=== PATIENT | female | born 1960 | race Caucasian/White ===

== ENCOUNTER 2021-09-25 15:37 | Emergency (ER) | payer MEDICAID, SELFPAY ==
--- NOTE | 2021-09-25 15:40 | ECG_ITS ---
Test Reason : CHEST PAIN Blood Pressure : / mmHG Vent. Rate : 081 BPM Atrial Rate : 081 BPM P-R Int : 170 ms QRS Dur : 072 ms QT Int : 372 ms P-R-T Axes : 070 034 059 degrees QTc Int : 432 ms Normal sinus rhythm Normal ECG No previous ECGs available Referred By: Generic ED Physician Electronically Signed By:DEEPA COLVIN MD
== END 2021-09-25 20:05 | disposition left against medical advice (07) ==
PROVIDERS: Emergency Provider Emergency Medicine; PCP Family Medicine
DX: R07.9 Chest pain, unspecified (principal)
CPT/HCPCS: 93005; 99281; 99283

== ENCOUNTER 2024-08-04 11:29 | Outpatient (AMB) | payer OTHER, SELFPAY ==
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
== END 2024-08-04 12:29 | disposition home or self-care (01) ==
LOC: HO.HUSH 11:29
PROVIDERS: PCP Family Medicine; Visit Provider Nurse Practitioner Family
DX: R39.9 Unspecified symptoms and signs involving the genitourinary system (principal); R35.0 Frequency of micturition; R35.1 Nocturia; N30.10 Interstitial cystitis (chronic) without hematuria; Z13.9 Encounter for screening, unspecified
CPT/HCPCS: 99203

== ENCOUNTER → 2024-08-04 11:29 | Outpatient (BNVA) | payer OTHER, SELFPAY | PROVIDERS: PCP Family Medicine; Visit Provider Nurse Practitioner Family | DX: N30.10 Interstitial cystitis (chronic) without hematuria (principal); R35.1 Nocturia; R35.0 Frequency of micturition; R39.9 Unspecified symptoms and signs involving the genitourinary system | CPT/HCPCS: 51798; 81003; 99202 ==

== ENCOUNTER 2024-09-16 10:00 | Outpatient (REF) | payer OTHER, SELFPAY | END 2024-09-16 10:01 | disposition home or self-care (01) | LOC: HO.US 10:00 | PROVIDERS: PCP Family Medicine; Visit Provider Nurse Practitioner Family | DX: R35.1 Nocturia (principal); R35.0 Frequency of micturition; R39.9 Unspecified symptoms and signs involving the genitourinary system; N30.10 Interstitial cystitis (chronic) without hematuria | CPT/HCPCS: 76770 ==

== ENCOUNTER → 2024-09-16 10:02 | Outpatient (BNV) | payer OTHER, SELFPAY | PROVIDERS: PCP Family Medicine; Visit Provider Radiology Diagnostic Radiology | DX: N28.1 Cyst of kidney, acquired (principal) | CPT/HCPCS: 76770 ==

== ENCOUNTER 2024-09-23 09:59 | Outpatient (AMB) | payer OTHER, SELFPAY ==
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
== END 2024-09-23 10:55 | disposition home or self-care (01) ==
LOC: HO.HUSH 09:59
PROVIDERS: PCP Family Medicine; Visit Provider Nurse Practitioner Family
DX: Z13.9 Encounter for screening, unspecified (principal)

== ENCOUNTER → 2024-09-23 09:59 | Outpatient (BNVA) | payer OTHER, SELFPAY | PROVIDERS: PCP Family Medicine; Visit Provider Nurse Practitioner Family | DX: N30.10 Interstitial cystitis (chronic) without hematuria (principal); R35.0 Frequency of micturition; R35.1 Nocturia; N28.1 Cyst of kidney, acquired | CPT/HCPCS: 81003; 99212 ==

== ENCOUNTER 2025-03-16 10:33 | Outpatient (REF) | payer OTHER, SELFPAY ==
--- NOTE | ~2025-03-16 | CT_ITS ---
CLINICAL HISTORY: N28.1 - Cyst of kidney, acquired --- Additional Notes or Special Instructions: foll ow up complex right lower please cyst noted on recent retroperitoneal CT abdomen and pelvis with and without contrast Comparison: None Findings: No consolidation or effusion. There are multiple small hepatic cysts noted. The largest of these measures approximately 2.3 cm in greatest diameter. The patient is status post cholecystectomy. There is a 2.9 cm right renal cyst. The kidneys are otherwise unremarkable. The rest of the solid organs are normal. No bowel obstruction, pneumoperitoneum, or pneumatosis. Pelvic contents unremarkable. Normal appendix. The bones are intact. There is a severely degenerated disc at the L2-3 level. IMPRESSION: Benign hepatic and renal cysts as above. This document has been electronically signed by: Erick Fernandez MD on 03/17/2025 08:22:27
--- OUTSIDE RECORDS SUMMARY | 2025-03-16 11:13 | XMS_ITS | Data Portability ---
Author Organization [facility], , [facility], OFFICE Address [address] [place] [address] Care Team Providers Care Tone Cabinet Assembler Name Role Phone DOMINGA BANG General Surgeon BARON KLINE Vascular Surgeon [facility] Electronics Assembler JULIO CESAR HANKINS Primary Care Provide r [facility] Orthopedist [facility] Rheu matologist Assessment No assessment recorded. Plan of Treatment Reminders Order Date Submit Date Provider Last Modified By Organization Details Last Modified Time Details Appointments LAB Follow-U p 2024 09:00A M [facility] Lab Not available Not available Not available Wellness Visit 30 2024 11:00A M Julio Cesar Vega MD Not available Not available Not available Lab HbA1c (hemoglo bin A1c), blood [facility]23 [facility] [address] [place], [address], 02/05/2025 14:05:57 Referral urologis t referral - chronic intersti tial cystitis 2023 024 LULY Shook MD, [address] [place] [address] [place], [address], 08/04/2024 21:19:27 Procedures None recorded . Surgeries None recorded . Imaging None recorded . Medication Orders benzonat ate 200 mg capsule 2023 024 Not available 12/26/2024 09:11:47 tobramyc in 0.3 %-dexame thasone 0.1 % eye drops,lerma spension 2023 024 Not available 12/26/2024 09:12:10 Patient TargetsNo targets recorded. Patient Instructions Encounter Date Encounter Id Patient Instructions Last Modified By Organization Details Last Modified Time 05/29/2024 [id number] we will [place] zuleika Not available 05/29/2024 12:05:12 12/26/2024 [id number] zuleika Not availab le 12/27/2024 20:23:53 Reason for Referral Urologist Referral for Chron ic interstitial cystitis chronic interstitial cystitis Referring Physician: Julio Cesar Vega, Family Medicine, Encounter Date: 05/29/2024 Results Created Date Observation Date Name Description Value Unit Range Abnormal Flag Note LastModifiedBy Organization Detail LastModifiedTime 05/23/2005/26/2024 LIPID PANEL cholesterol 200 mg/dL <200 mg/dl Norberto able 200-2 39 mg/dl Borde rline High >240 mg/dl High Not Available [address], [address], 05/26/2024 14:33:04 05/23/20 24 05/26/2024 LIPID PANEL triglyceride s 58 mg/dL <150 mg/dL Cherelle l 150-1 99 mg/dL Borde rline High 200-4 99 mg/dL High >500 mg/dL Very High Not Available [address], [address], 05/26/2024 14:33:04 05/23/20 24 05/26/2024 LIPID PANEL direct HDL 62 mg/dL <40 mg/dl - Major Risk for CHD >60 mg/dl - Negat júnior Risk for CHD Not Available [address], [address], 05/26/2024 14:33:04 05/23/20 24 05/26/2024 DIREC T LDL direct LDL 112 mg/dL RISK CATEG ORY LDL GOAL _ CHD or CHD Risk Equiv alent s <100 mg/dl (10-y ear risk >20%) 2+ Risk Facto rs <130 mg/dl (10-y ear risk <= 20%) 0-1 Risk Facto r? <160 mg/dl ? Almos t all peopl e with 0-1 risk facto r have a 10 year risk <10%, thus 10 year risk asses ment in peopl e with 0-1 risk facto r is not neces raine. Not Available [address], [place], [address], 05/26/2024 14:33:05 06/04/20 24 06/06/2024 ANATO JUSTIN PATHO LOGY path report [facility] [address] [place] [address] Lab Direc tor: Kate william MD Surgi laureano Patho logy Repor t Acces bren #: [id number] FINAL PATHO LOGIC DIAGN OSIS: A. DUODE NUM, BIOPS Y: No patho logic abnor malit y. B. STOMA CH ANTRU M, BIOPS Y: Erosi ve gastr itis. C. GASTR OESOP HAGEA L JUNCT ION BIOPS Y: Squam ocolu mnar junct ion with react júnior glez es. Negat júnior for intes tinal metap lasia and dyspl fausto. Note: Immun ohist ochem ical stain s for H. pylor i are perfo rmed on the gastr ic biops ies and DO NOT DEMON STRAT E organ isms with the morph ologi c juliocesar cteri stics of Helic obact er. Prisca ctron icall y Emili d Out By Allen honeycutt MD By his/h er shawn maddox above , the patho logis t liste d as michelle lopez the Final Diagn osis certi fies that he/sh e has perso adriano revie wed this case and confi rmed or corre cted the diagn osis. CLINI LAUREANO HISTO RY Dyspe psia, recur rent vomit ing SPECI MENS SUBMI TTED: A: DUODE NUM, BIOPS Y B: STOMA CH ANTRU M, BIOPS Y C: GASTR OESOP HAGEA L JUNCT ION BIOPS Y GROSS DESCR IPTIO N A. DUODE NUM, BIOPS Y: Recei kun in forma shelli is a 0.5 x 0.3 x 0.2 cm irreg ular porti on of shah-p ink soft tissu e which is submi tted in toto in a singl e casse tte label ed A1. B. STOMA CH ANTRU M, BIOPS Y: Recei kun in forma shelli are 4 irreg ular shah-p ink soft tissu e fragm ents varyi ng in size from 0.3 x 0.3 x 0.1 cm up to 0.5 x 0.3 x 0.2 cm which are submi tted in toto in a singl e casse tte label ed B1. C. GASTR OESOP HAGEA L JUNCT ION BIOPS Y: Recei kun in forma shelli are multi ple irreg ular shah-p ink soft tissu e fragm ents varyi ng in size from 0.1 x 0.1 x 0.1 cm up to 0.3 x 0.2 x 0.1 cm which are submi tted in toto in singl e casse tte label ed C1. Gross ed by: Rolando meier, MHS, PA( CP) DN 024 Gross ing Staff : [id number] One or more of the reage nts used in immun ohist ochem ical testi ng in this case may not have been clear ed or appro kun by the U.S. Food and Drug Admin istra tion (FDA) . The FDA has deter mined that such clear ance or appro shalonda is not neces raine. These tests are used for clini laureano purpo ses. This shoul d not be regar ded as inves tigat ional or for resea rch. These reage nts' perfo rmanc e juliocesar cteri stics have been deter mined by the [facility]. This labor atory is certi fied under the Clini laureano Labor atory Impro vemen t Amend ments of 1987 (CLIA -88) as quali fied to perfo rm high compl exity clini laureano labor atory testi ng. Immun ohist ochem istry is perfo rmed on forma shelli-f ixed paraf fin-e mbedd ed secti ons (unle ss other concepcion speci fied) and on a Bench leah Ultra immun ostai ner which utili zes a propr ietar y polym er detec tion syste m. Posit júnior, negat júnior and inter nal contr ols, when prese nt, stain appro priat monet. Patie nt Name: MARION HAAS : [birth year] (Age: 63) Sex: F 3 Insti tutio n: [facility] Locat ion: [facility] Date of Opera tion: 024 Date of Acces bren: 024 Repor melody: 14:12 Resul ts To: Nikita garcias MD, BS Andrewarm clarisse Vu MD, BS Watt y Medic al Speci altie s Not Available [facility] (Outpatient) [address] [place] [address], [address], 06/06/2024 17:10:32 09/30/20 24 09/30/2024 LDCT, chest , for lung cance r scree francisco No observ ation record ed. LULY [facility] [address] [place], [address], 10/01/2024 11:30:44 10/02/20 24 09/30/2024 LDCT, chest , for lung cance r scree francisco No observ ation record ed. rosanna [facility] [address] [place], [address], 10/17/2024 09:32:10 11/04/19 25 09/16/2024 US, retro perit oneum , compl ete No observ ation record ed. [facility] [place] [address] [place], [address], 11/04/2024 13:40:52 Result Notes None recorded. Procedures Surgical History Date Name Laterality Status Provider Name and Address Organization Details Recorded Time Tassoni - EGD completed Kevin Felix MD [address] [place] [address], [id number], [facility] 06/04/2024 13:06:05 Imaging Results Imaging Date Name Status LastModified by Organiz ation Details LastModified Time 09/30/2024 LDCT, chest, for lung cancer screening completed LULY [facility] [address] [place], [address], 10/01/2024 11:30:44 09/30/2024 LDCT, chest, for lung cancer screening [facility] [address] [place], [address], 10/17/2024 09:32:10 09/16/2024 US, retroperitone um, complete completed [facility] [address] [place], [address], 11/04/2024 13:40:52 Procedure Notes None recorded. Medical Equipment None Reported. Allergies No known drug allergies Medications Name Sig Start Date Stop Date Status Note LastModified by Organization Details LastModified Time cyclobenz aprine 10 mg tablet Take 1 tablet twice a day by oral route as needed for 10 days. 06/25 completed Not Available Not Available Not Available doxycycli ne hyclate 100 mg capsule active Not Available Not Available Not Available trazodone 50 mg tablet Take 1 tablet every day by oral route at bedtime. 2009 active Not Available Not Available Not Avai lable azithromy beverly 250 mg tablet take 2 tablets by mouth on day 1 then 1 tablet on days 2 through 5 08/14 completed Not Available Not Available Not Available aspirin 325 mg tablet TAKE 1 TABLET BY MOUTH DAILY. NO IBUPROFE N WHILE ON THIS MEDICATI ON 10/15 completed has not been taking 06/13/23 KRB Not Available Not Available Not Available ibuprofen 800 mg tablet TAKE 1 TABLET BY MOUTH THREE TIMES DAILY FOR SWELLING 12/06 completed No longer using 12/06/21 NMT Not Available Not Available Not Available benzonata te 200 mg capsule Take 1 capsule 3 times a day by oral route. 2023 active Not taking 12/26/24 cc Not Available Not Available Not Available hydrocodo ne 5 mg-acetam inophen 325 mg tablet TAKE 1 TABLET EVERY 6 HOURS FOR PAIN 12/06 completed Pt all done 12/06/21 NMT Not Available Not Available Not Available prednison e 20 mg tablet TAKE 3 TABLETS BY MOUTH ON DAY 1 THEN TAKE 2 TABLETS BY MOUTH ON DAY 2 THEN TAKE 1 TABLET BY MOUTH ON DAY 3 10/15 completed Not Available Not Available Not Available amoxicill in 500 mg tablet TAKE 1 TABLET BY MOUTH THREE TIMES DAILY UNTIL FINISHED 12/06 completed Pt finished course 12/06/21 NMT Not Available Not Available Not Available oxycodone -acetamin ophen 5 mg-325 mg tablet take 1 tablet by mouth three times a day if needed for SEVERE pain 12/06 completed Not Available Not Available Not Available ofloxacin 0.3 % ear drops instill 10 DROPS into affected ear twice a day 06/04 completed Stopped 09/09/19 DO, Not using 03/02/2020 LZ no longer taking 03/17/20 20 pd Not Available Not Available Not Available amoxicill in 875 mg tablet TAKE 1 TABLET BY MOUTH EVERY 12 HOURS FOR 7 DAYS 09/06 completed Not Available Not Available Not Available Klonopin 0.5 mg tablet Take 1 tablet twice a day by oral route as needed. 2009 active as needed Not Available Not Available Not Available nitroglyc maddi 0.4 mg/hr transderm al 24 hour patch APPLY 1 PATCH TOPICALL Y TO THE SKIN DAILY 10/15 completed Not using 03/29/23 as Not Available Not Available Not Available hydrocort isone-deborah tic acid 1 %-2 % ear drops active Not Available Not Available No t Available antipyrin e-benzoca ine 5.4 %-1.4 % ear drops active Not Available Not Available No t Available diazepam 2 mg tablet TAKE 1 TABLET AT BEDTIME FOR SEVERE ANXIETY 05/21 completed Not Available Not Available Not Available phenazopy ridine 100 mg tablet TAKE 1 TABLET BY MOUTH 3 TIMES DAILY NEEDED. 2009 active as needed Not Available Not Available Not Available benzonata te 100 mg capsule take 1 capsule by mouth three times a day 06/04 completed Not using - as needed 03/02/2020 LZ no longer taking 03/17/20 20 pd Not Available Not Available Not Available cephalexi n 500 mg capsule TAKE 1 CAPSULE BY MOUTH THREE TIMES DAILY 09/30 completed Not taking at this time 09/30/22 JF Not Available Not Available Not Available ciproflox acin 0.2 %-hydroco rtisone 1 % ear drops,bianca pension Instill 3 drops into affected ear(s) by otic route every 12 hours 05/20 completed Not Available Not Available Not Available oseltamiv ir 75 mg capsule TAKE 1 CAPSULE (75 MG TOTAL) BY MOUTH EVERY 12 HOURS FOR 10 DOSES. active Not taking 12/26/24 cc Not Available Not Available Not Available nystatin 100,000 unit/gram topical cream APPLY TO AFFECTED AREA BY TOPICAL ROUTE TWO TIMES A DAY 05/14 completed Not Available Not Available Not Available ranitidin e 150 mg tablet take 1 tablet by mouth twice a day before meals 06/27 completed Not Available Not Available Not Available misoprost ol 200 mcg tablet active Not Available Not Available Not Available prednison e 50 mg tablet take 1 tablet by mouth once daily for 2 days 05/17 completed Not Available Not Available Not Available Anaprox DS 550 mg tablet Take 1 tablet every 12 hours by oral route as needed for 15 days. 09/24 completed Not Available Not Available Not Available orphenadr ine citrate ER 100 mg tablet,ex tended release active Not Available Not Available Not Available ibuprofen 200 mg tablet Take 1 tablet every 6 hours by oral route as needed. 01/22 completed Not Available Not Available Not Available docusate sodium 100 mg capsule TAKE 1 CAPSULE BY MOUTH TWICE DAILY 09/30 completed Not taking at this time 09/30/22 JF Not Available Not Available Not Available omeprazol e 20 mg capsule,d elayed release TK ONE C PO BID 04/01 completed Not Available Not Available Not Available Cortispor in 3.5 mg/mL-10, 000 unit/mL-1 % ear solution Instill 4 drops into affected ear(s) by otic route 3 times per day 2009 active Not Available Not Available Not Avai lable hydroxyzi ne HCl 25 mg tablet Take 1 tablet every day by oral route at bedtime. active Not Available Not Available No t Available hydrocodo ne 5 mg-acetam inophen 500 mg tablet take 1.00 to 2.00 tabs every 6 hrs. active Not Available Not Available No t Available bisacodyl 5 mg tablet,de layed release TAKE 4 TABLETS BY MOUTH ONCE 10/15 completed Not Available Not Available Not Available mupirocin 2 % topical ointment APPLY SMALL AMOUNT TOPICALL Y TO THE AFFECTED AREA THREE TIMES DAILY 09/30 completed PRN/Not taking at this time 09/30/22 JF Not Available Not Available Not Available norethind frieda acetate 5 mg tablet active Not Available Not Available No t Available ibuprofen 600 mg tablet 09/04 completed Not Available Not Available Not Available cefuroxim e axetil 500 mg tablet take 1 tablet by mouth every 12 hours for 10 days until finished 08/14 completed Not Available Not Available Not Available ketorolac 60 mg/2 mL intramusc ular solution Inject 2 mL by intramus cular route. 2008 active Not Available Not Available Not Avai lable Naprosyn 500 mg tablet Take 1 tablet twice a day by oral route. 2009 active Not Available Not Available Not Avai lable hydroxyzi ne HCl 10 mg tablet Take 1-2 tablets for itching, can take for up to 7 days. 09/25 completed Not Available Not Available Not Available Hibiclens 4 % topical liquid Soak infected finger in warm water w/ Hibiclen s 3-4x/day . 2008 active Not Available Not Available Not Avai lable amoxicill in 875 mg-potass ium clavulana te 125 mg tablet TAKE 1 TABLET BY MOUTH TWICE A DAY FOR INFECTIO N 12/06 completed Pt finished course 12/06/21 NMT Not Available Not Available Not Available tobramyci n 0.3 %-dexamet hasone 0.1 % eye drops,bianca pension Instill 1 drop 3 times a day by ophthalm ic route as directed for 5 days. active Not taking 12/26/24 cc Not Available Not Available Not Available oxycodone 5 mg tablet TAKE 1 TABLET BY MOUTH TWICE DAILY FOR 7 DAYS NEEDED 03/08 completed finished 3ab Not Available Not Available Not Available neomycin- polymyxin -hydrocor t 3.5 mg-10,000 unit/mL-1 % ear drops,bianca p instill 4 drops into affected ear three times a day 08/14 completed Not Available Not Available Not Available Tessalon Perle 100 mg capsule Take 1 capsule 3 times a day by oral route as needed. 06/04 completed no longer taking 03/17/20 20 pd Not Available Not Available Not Available Laxative (bisacody l) 5 mg tablet TK 4 TS PO WITH 8 OUNCE CLEAR LIQUID FOR 1 DAY 06/04 completed no longer taking 03/17/20 20 pd Not Available Not Available Not Available cyclobenz aprine 5 mg tablet take 1 tablet by mouth once daily at bedtime if needed for 7 days 01/22 completed Not Available Not Available Not Available lactulose 10 gram/15 mL oral solution TAKE 15 ML BY MOUTH 4 TIMES A DAY NEEDED FOR 7 DAYS FOR CONSTIPA TION active Not Available Not Available No t Available Flovent HFA 44 mcg/actua tion aerosol inhaler inhale 2 puffs by mouth and INTO THE LUNGS twice a day 06/04 completed no longer taking 03/17/20 20 pd Not Available Not Available Not Available chlorhexi dine gluconate 0.12 % mouthwash GENTLY RISE TWICE DAILY. DO NOT SWALLOW 04/01 completed Not Available Not Available Not Available IBU active otc prn Not Available Not Avail able Not Available Fish Oil 05/29 completed Not Available Not Available Not Available flaxseed oil active Not Available Not Available Not Available naproxen active 1 tab as needed Not Available Not Available Not Available Bactrim DS 2008 active TAKE 1 TWICE A DAY FOR 10 DAYS Not Available Not Available Not Available aloe vera 05/29 completed Not Available Not Available Not Available Glucosami ne 05/29 completed Not Available Not Available Not Available Prilosec active takes daily Not Available Not Available Not Available Vitamin D3 active Not Available Not Available Not Available Zithromax Z-Bob 12/13 completed 1 more dose left 12/06/17 Not Available Not Available Not Available OsmoPrep 1.5 gram (1.102-0. 398) tablet take as directed 05/15 completed Not Available Not Available Not Available ProAir HFA 90 mcg/actua tion aerosol inhaler Inhale 2 puffs every 4 hours by inhalati on route as needed. 06/04 completed no longer taking 03/17/20 20 pd Not Available Not Available Not Available fluocinol one acetonide oil 0.01 % ear drops active Not Available Not Available Not Available GaviLyte- G 236 gram-22.7 4 gram-6.74 gram-5.86 gram oral solution MIX AND DRINK DIRECTED 10/15 completed Not Available Not Available Not Available ProChambe r 03/08 completed Not Available Not Available Not Available Laxative PEG 3350 17 gram/dose oral powder take 17GM (DISSOLV ED IN WATER) by mouth once daily 05/15 completed Not Available Not Available Not Available Probiotic active Not Available Not Kristina ilable Not Available Vitals None Recorded Social History Question Answer Notes LastModified by Organizat ion Details LastModified Time Do You Have An Advance Directive? Yes Jazmin jackeline Information not available 11/21/2022 What Is Your Level Of Caffeine Consumption? Occasional [email or web address] Information not available 11/21/2022 How Much Tobacco Do You Chew? None Never. [email or web address] Information not available 06/24/2009 What Type Of Diet Are You Following? VEGETARIAN [email or web address] Information not available 11/21/2022 Have There Been Any Changes To Your Family Or Social Situation? No Information not available 11/21/2022 When Did You Quit Smoking? 6-10yearssince lastcigarette Quit August 2017 [email or web address] Information not available 08/08/2024 Marital Status Single [email or web address] Information not available 11/21/2022 What Was The Date Of Your Most Recent Tobacco Screening? 12/26/2024 Information not available 12/26/2024 How Many Children Do You Have? 0 Information not available 09/07/2014 What Is Your Current Pack Years? 10-19packyears [email or web address] Information not available 08/08/2024 Do You Use Your Seat Belt Or Car Seat Routinely? Yes [email or web address] Information not available 11/21/2022 Do You Have Smoke And Carbon Monoxide Detectors In Your Home? Yes Information not available 11/21/2022 At What Age Did You Start Smoking Tobacco? 16 Start And Smoked About 18 [email or web address] Information not available 08/08/2024 How Much Tobacco Do You Smoke? No Information not available 03/02/2020 Sex: Unknown Functional Status Question Answer Note LastModified by Organizat ion Details LastModified Time Do you use any illicit or recreational drugs? No [email or web address] Information not available 11/21/2022 Do you or have you ever used any other forms of tobacco or nicotine? No dulias Information not available 11/21/2022 What is your level of alcohol consumption? Moderate 3-4 per week [email or web address] Information not available 07/23/2013 Do you or have you ever used smokeless tobacco? Never used smokeless tobacco Information not available 03/02/2020 Are you currently employed? No [email or web address] Information not available 11/21/2022 Do you or have you ever used e-cigarettes or vape? Never used electronic cigarettes Information not available 03/02/2020 What is your exercise level? Occasional [email or web address] Information not available 11/21/2022 Mental Status None recorded. Family History Relationship Description Onset Age of this Age Resolved Age Notes LastModified by Organization Details LastModified Time Mother Problem 69 [place]ON [place] Not available 09/07/2014 12:04:57 Mother Malignant tumor of colon david mays Not available 05/29/2024 21:01:37 Father Problem 96, , lived in [facility] Not available 08/22/2024 11:42:30 Brother Substance abuse david mays Not available 05/29/2024 12:11:35 Notes:No breast cancer. No c ad Medical History Condition Response Abnormal Pap Y RENAL / GENITOURINARY Y Gynecological HistoryNo gynecological history recorded. Obstetrics History GPAL:G 0 P 0 0 0 0 Past Encounters Encounter ID Performer Location Encounter Start Date Encounter Closed Date Diagnosis/Indication Diagnosis SNOMED-CT Code Diagnosis ICD10 Code Diagnosis Note [id number] Zhanna Nogueira MD , [facility], [address] [place] [address] 02/08/2006 16:43:32 02/09/2006 14:36:20 [id number] Zhanna Nogueira MD , [facility], [address] [place] [address] 03/06/2006 10:06:48 03/06/2006 16:46:07 [id number] Mannie Valverde MD , [facility], [address] [place] [address] 04/06/2006 10:58:20 11/18/2008 02:02:29 [id number] Mannie Valverde MD , [facility], [address] [place] [address] 04/06/2006 10:58:20 11/18/2008 02:02:29 [id number] Mannie Valverde MD [facility], [address] [place] [address] 05/11/2006 16:19:05 11/18/2008 02:02:29 [id number] Abebe Lee MD , [facility], [address] [place] [address] 06/01/2006 15:10:29 06/01/2006 15:58:27 [id number] Mannie Valverde MD , [facility], [address] [place] [address] 10/17/2006 08:53:19 10/17/2006 10:56:10 [id number] Mannie Valverde MD , [facility], [address] [place] [address] 12/04/2006 09:34:21 12/04/2006 12:04:05 [id number] Marily Thompson NP , [facility], [address] [place] [address] 12/11/2006 07:37:01 12/11/2006 11:33:28 [id number] Nithya Banuelos. , [facility], [address] [place] [address] 04/03/2007 09:52:44 04/03/2007 11:20:16 [id number] Rick Andrew MD FP, [facility], [address] [place] [address] 04/17/2007 09:38:22 04/17/2007 10:44:24 [id number] Daisha Garcia NP FP, [facility], [address] [place] [address] 05/30/2007 16:26:29 05/31/2007 09:16:26 [id number] Daisha Garcia NP FP, [facility], [address] [place] [address] 08/28/2007 15:29:43 11/18/2008 02:02:29 [id number] [facility] - [address] [place] [place] [facility] [address] 09/04/2007 08:31:48 09/04/2007 08:33:19 [id number] MINESH Munoz, [facility], [address] [place] [address] 11/13/2007 14:01:21 11/18/2008 02:02:29 [id number] [facility] - [address] [place] [place] [facility] [place] [address] 11/13/2007 14:02:11 11/13/2007 14:07:28 [id number] [facility] - [address] [place] [place] [facility] [place] [address] 12/11/2007 10:18:46 12/11/2007 10:21:32 [id number] [facility] - [facility] [address] [place] [place] [facility] [place] [address] [id number] [facility] [address] [place] [place] [facility] [place] [address] 12/31/2007 00:00:00 11/18/2008 02:02:29 [id number] MINESH Munoz, [facility], [address] [place] [address] 02/04/2008 11:03:26 11/18/2008 02:02:29 [id number] [facility] [address] [place] [place] [facility] [place] [address] 02/04/2008 11:32:28 02/04/2008 12:56:29 [id number] Daisha Garcia NP FP, [facility], [address] [facility] [place] [place] [address] 03/25/2008 15:38:12 11/18/2008 02:02:29 [id number] [facility] FP TREATMENT NURSE FP, [facility], [address] [facility] [place] [place] [address] 04/01/2008 10:34:02 11/18/2008 02:02:29 [id number] [facility] FP TREATMENT NURSE FP, [facility] [address] [facility] [address] 04/08/2008 15:11:44 11/18/2008 02:02:29 [id number] [facility] FP TREATMENT NURSE FP, [facility], OFFICE [address] [facility] [place] [address] 6 04/15/2008 13:46:14 11/18/2008 02:02:29 [id number] [facility] FP TREATMENT NURSE FP, [facility], OFFICE [address] [facility] [place] [place] [address] 6 04/22/2008 13:46:21 11/18/2008 02:02:29 [id number] [facility] FP TREATMENT NURSE FP, [facility], OFFICE [address] [facility] [place] [place] [address] 6 04/29/2008 09:02:06 11/18/2008 02:02:29 [id number] [facility] FP TREATMENT NURSE FP, [facility], OFFICE [address] [facility] [place] [address] 6 05/06/2008 10:40:54 11/18/2008 02:02:29 [id number] [facility] FP TREATMENT NURSE FP, [facility], OFFICE [address] [facility] [place] [address] 6 05/13/2008 14:05:48 11/18/2008 02:02:29 [id number] [facility] Radiology , [address] [address] 6 10/02/2008 10:32:18 10/05/2008 09:34:20 [id number] [facility] Radiology , [address] [address] 6 10/02/2008 00:00:00 11/18/2008 02:02:29 [id number] [facility] - [facility] [address] [facility] [place] [address] 6 10/02/2008 08:56:27 10/02/2008 08:57:17 [id number] Kate Menon NP FP, [facility], OFFICE [address] [facility] [place] [address] 6 10/02/2008 08:19:55 11/18/2008 02:02:29 [id number] Kate Menon NP FP, [facility], OFFICE [address] [facility] [place] [address] 6 11/24/2008 13:16:39 11/26/2008 12:26:20 [id number] Daisha Garcia NP FP, [facility], OFFICE [address] [facility] [place] [address] 6 02/08/2009 16:23:54 02/22/2009 12:43:37 [id number] Daisha Garcia NP FP, [facility], OFFICE [address] [facility] [place] [address] 6 03/10/2009 08:59:13 03/12/2009 10:54:58 [id number] MINESH Villarreal, [facility], OFFICE [address] [facility] [place] [address] 6 04/20/2009 08:14:57 04/26/2009 13:43:24 [id number] MD KATHERINE Luke, [facility], OFFICE [address] [place] [address] 6 04/30/2009 09:55:37 05/05/2009 12:52:59 [id number] Nithya Rutherford, [facility], OFFICE [address] [place] [address] 6 05/02/2009 10:13:22 05/06/2009 08:01:19 [id number] [facility] FP TREATMENT NURSE FP, [facility], OFFICE [address] [place] [address] [place] [address] 6 05/18/2009 15:20:50 05/25/2009 08:54:21 [id number] MINESH Villarreal, [facility], OFFICE [address] [facility] [place] [address] 6 05/20/2009 10:52:30 05/25/2009 15:35:08 [id number] Tanja Dc NP , [facility], OFFICE [address] [facility] [place] [address] 6 06/24/2009 09:04:44 06/29/2009 15:25:21 [id number] Kate Menon NP FP, [facility], OFFICE [address] [place] [address] 6 07/29/2009 11:30:54 07/30/2009 14:01:27 [id number] Lorna Pizarro MD FP, [facility], OFFICE [address] [place] [address] 6 08/08/2009 09:14:07 08/09/2009 15:30:45 [id number] [facility] - [address] [address] 11/24/2008 14:16:27 11/24/2008 14:18:07 [id number] [facility] - [address] [place] [address] 6 04/12/2009 08:09:18 04/12/2009 08:13:28 [id number] [facility] - [address] [address] 6 04/20/2009 08:47:29 04/20/2009 09:00:47 [id number] Julio Cesar Vega MD , [facility], OFFICE [address] [place] [address] 6 09/09/2009 08:05:34 09/14/2009 10:29:27 [id number] [facility] Radiology , [address] [place] [address] 6 09/13/2009 09:06:52 09/15/2009 11:58:15 [id number] Hadley Hopkins MD FP, [facility], OFFICE [address] [place] [address] 6 10/06/2009 16:42:58 10/12/2009 08:02:46 [id number] Tanja Dc NP , [facility], OFFICE [address] [place] [address] 6 01/21/2010 16:39:53 01/25/2010 09:58:33 [id number] Hadley Hopkins MD FP, [facility], OFFICE [address] [place] [address] 6 02/23/2010 16:38:52 02/25/2010 13:46:46 [id number] Daisha Garcia NP FP, [facility], OFFICE [address] [place] [address] 6 03/09/2010 15:24:57 04/12/2010 07:53:29 [id number] Daisha Garcia NP FP, [facility], OFFICE [address] [place] [address] 6 03/22/2010 17:37:51 03/31/2010 08:31:26 [id number] MINESH Villarreal, [facility], OFFICE [address] [place] [address] 6 04/08/2010 08:17:25 04/14/2010 09:09:20 [id number] Kate Menon NP FP, [facility], OFFICE [address] [place] [address] 6 04/21/2010 16:17:23 04/27/2010 12:06:11 [id number] Julio Cesar Vega MD , [facility], OFFICE [address] [place] [address] 6 06/02/2010 09:03:28 06/08/2010 15:35:51 [id number] Kate Menon NP FP, [facility], OFFICE [address] [facility] [place] [address] 6 06/15/2010 11:13:54 06/21/2010 12:05:58 [id number] Yolanda Concepcion, PT Physical Therapy, [facility] [address] [facility] [place] [address] 6 06/16/2010 12:30:45 06/20/2010 09:37:11 [id number] MD KATHERINE Paz, [facility], OFFICE [address] [place] [address] 6 06/22/2010 16:31:25 06/27/2010 12:10:27 [id number] Julio Cesar Vega MD , [facility], OFFICE [address] [place] [address] 6 01/02/2013 10:46:51 01/02/2013 11:48:06 [id number] Julio Cesar Vega MD , [facility], OFFICE [address] [place] [address] 6 01/09/2013 11:26:21 01/09/2013 12:41:16 [id number] Tanja Dc NP , [facility], OFFICE [address] [place] [address], [place] [address] 6 02/21/2013 11:04:38 02/21/2013 11:38:51 [id number] Tanja Dc NP , [facility], OFFICE [address] [place] [address] 6 03/28/2013 14:22:39 03/28/2013 17:13:42 [id number] BRENDAN ContrerasP-[facility], OFFICE [address] [place] [address] 6 06/23/2013 13:49:47 06/23/2013 15:54:23 [id number] Jesenia Richardson M.D. , [facility], OFFICE [address] [place] [address] 6 07/23/2013 15:31:57 07/23/2013 16:18:05 [id number] Sue Ybarra [facility], [facility] [address] [place] [address] 6 07/25/2013 11:09:45 07/28/2013 11:54:30 [id number] Torrey Jack MD , [facility], OFFICE [address] [place] [address] 6 11/01/2013 11:03:19 11/01/2013 15:40:47 [id number] Latasha Lozoya PA-C , [facility], OFFICE [address] [place] [address] 6 02/06/2014 15:20:19 02/06/2014 15:46:43 [id number] Eddie Caba MD , [facility], OFFICE [address] [place] [address] 1 04/14/2014 14:44:00 04/15/2014 08:10:58 [id number] Christa Oneal , [facility], OFFICE [address] [place] [address] 6 05/27/2014 12:10:35 05/27/2014 12:34:06 [id number] Jesenia Richardson M.D. , [facility], OFFICE [address] [place] [address] 6 06/07/2014 09:57:20 06/07/2014 11:02:54 [id number] CHAPARRO Martinez , [facility], OFFICE [address] [place] [address] 6 08/12/2014 16:21:47 08/12/2014 17:31:55 [id number] Hadley Hopkins MD , [facility], OFFICE [address] [facility] [place] [address] 6 09/07/2014 11:15:06 09/07/2014 14:58:38 [id number] MD KATEHRINE Pedroza, [facility], OFFICE [address] [facility] [place] [address] 6 09/14/2014 13:57:51 09/14/2014 14:23:32 [id number] Zoraida Gambino NP , [facility], OFFICE [address] [facility] [place] [address] 6 04/12/2016 08:18:12 04/12/2016 09:14:05 [id number] MD KATHERINE Pedroza, [facility], OFFICE [address] [place] [address] 6 05/14/2016 10:25:52 05/14/2016 11:17:53 [id number] Christa MURPHY, [facility], OFFICE [address] [facility] [place] [address] 6 05/15/2016 15:32:23 05/15/2016 16:10:37 [id number] Christa MURPHY, [facility], OFFICE [address] [place] [address] 6 05/17/2016 08:20:17 05/17/2016 08:52:52 [id number] MD KATHERINE Pedroza, [facility], OFFICE [address] [facility] [place] [address] 6 05/23/2016 11:49:24 05/23/2016 12:21:02 [id number] Mannie Valverde MD , [facility], OFFICE [address] [place] [address] 6 06/10/2016 11:13:39 06/10/2016 12:47:48 [id number] Julio Cesar Vega MD , [facility], OFFICE [address] [facility] [place] [address] 6 06/27/2016 13:40:44 06/27/2016 14:33:33 [id number] BELGICA Martinez-[facility], [facility], OFFICE [address] [place] [address] [place] [address] 6 12/22/2016 15:49:24 12/22/2016 17:32:27 [id number] Rick Andrew MD , [facility], OFFICE [address] [place] [address] [place] [address] 6 08/14/2017 12:00:25 08/14/2017 12:16:10 [id number] Christa Oneal , [facility], OFFICE [address] [facility] [place] [address] 6 12/06/2017 09:41:12 12/06/2017 10:42:12 [id number] Julio Cesar Vega MD , [facility], OFFICE [address] [facility] [place] [address] 6 12/13/2017 10:46:01 12/13/2017 16:16:37 [id number] Yolanda Estrada D.O. , [facility], OFFICE [address] [facility] [place] [place] [address] 6 04/03/2018 14:51:47 04/03/2018 16:53:12 [id number] Bailee Galindo MD , [facility], OFFICE [address] [facility] [place] [place] [address] 6 06/04/2018 14:31:34 06/05/2018 14:27:35 [id number] BELGICA Acuna , [facility], OFFICE [address] [facility] [place] [address] 6 06/14/2018 13:43:15 06/14/2018 14:20:50 [id number] Rick Andrew MD , [facility], OFFICE [address] [place] [address] 6 01/22/2019 12:19:32 01/22/2019 13:34:18 [id number] MD KATHERINE Pedroza, [facility], OFFICE [address] [place] [address] 6 09/04/2019 09:56:17 09/05/2019 10:37:48 [id number] Connie Seymour D.O. , [facility], OFFICE [address] [place] [address] 6 09/06/2019 09:35:35 09/10/2019 12:59:41 [id number] MD KATHERINE Pedroza, [facility], OFFICE [address] [place] [address] 6 09/09/2019 09:49:32 09/10/2019 08:32:17 [id number] Julio Cesar Vega MD , [facility], OFFICE [address] [place] [address] 6 03/02/2020 08:14:13 03/03/2020 10:56:46 [id number] Rick Andrew MD , [facility], OFFICE [address] [place] [address] 6 03/17/2020 10:20:34 03/17/2020 11:52:40 [id number] La Meade PA-C , [facility], OFFICE [address] [place] [address] 6 06/04/2020 10:04:11 06/07/2020 13:15:48 [id number] MD KATHERINE Luke, [facility], OFFICE [address] [place] [address] 6 04/12/2021 16:03:08 04/13/2021 08:54:05 [id number] MD KATHERINE Luke, [facility], OFFICE [address] [place] [address] 6 05/12/2021 16:06:00 05/13/2021 11:20:14 [id number] Daisha Landa MD , [facility], OFFICE [address] [place] [address] 6 05/14/2021 10:02:09 05/14/2021 16:01:50 [id number] Daisha Landa MD FP, [facility], OFFICE [address] [place] [address] 6 05/14/2021 10:17:20 05/14/2021 14:18:08 [id number] Kate Gunderson NP , [facility], OFFICE [address] [place] [address] 6 05/21/2021 11:30:44 05/21/2021 12:24:08 [id number] Kat Perry DNP, EMT [employer] , [facility], OFFICE [address] [place] [address] 6 09/27/2021 15:37:13 10/09/2021 14:53:04 [id number] MARY BARONE MD , [facility], OFFICE [address] [place] [address] 6 11/16/2021 09:25:48 11/16/2021 15:45:37 [id number] Zoraida Gambino NP , [facility], OFFICE [address] [place] [address] 6 12/06/2021 13:55:55 12/07/2021 15:32:37 [id number] Erika Jones MD , [facility], OFFICE [address] [place] [address] 6 04/01/2022 09:06:57 04/01/2022 10:13:14 [id number] Rick Andrew MD , [facility], OFFICE [address] [place] [address] 6 09/25/2022 09:36:32 09/25/2022 14:39:02 [id number] SANJU Giang MD FP, [facility], OFFICE [address] [place] [address] 6 09/30/2022 09:27:14 09/30/2022 10:02:50 [id number] Julio Cesar Vega MD FP, [facility], OFFICE [address] [place] [address] 10/03/2022 11:25:09 10/04/2022 11:38:43 [id number] Julio Cesar Vega MD FP, [facility], OFFICE [address] [place] [address] 6 10/13/2022 09:33:08 10/16/2022 14:14:24 [id number] Rick Andrew MD , [facility], OFFICE [address] [place] [address] 6 11/21/2022 13:31:29 11/22/2022 07:18:39 [id number] Julio Cesar Vega MD , [facility], OFFICE [address] [place] [address] 6 03/08/2023 10:48:18 03/12/2023 11:22:30 [id number] Julio Cesar Vega MD , [facility], OFFICE [address] [place] [address] 6 03/29/2023 10:46:31 03/29/2023 13:56:[id number], LDN [facility] [address] [place] [address] 6 05/30/2023 09:22:15 05/30/2023 21:36:51 [id number] iRck Andrew MD , [facility], OFFICE [address] [place] [address] 6 06/13/2023 08:28:25 06/14/2023 08:32:25 [id number] Julio Cesar Vega MD FP, [facility], OFFICE [address] [place] [address] 6 08/23/2023 09:05:05 08/24/2023 09:58:38 [id number] Julio Cesar Vega MD FP, [facility], OFFICE [address] [place] [address] 6 09/06/2023 07:54:52 09/07/2023 07:25:47 [id number] Julio Cesar Vega MD FP, [facility], OFFICE [address] [facility] [place] [address] 6 10/15/2023 13:14:25 10/18/2023 10:09:30 [id number] Julio Cesar Vega MD , [facility], OFFICE [address] [facility] [place] [address] 6 12/13/2023 15:38:19 12/13/2023 16:49:17 [id number] Karey Rice [facility] Podiatry, [facility] [address] [place] [address] 6 03/11/2024 11:00:08 03/14/2024 12:45:17 [id number] Julio Cesar Vega MD , [facility], OFFICE [address] [place] [address] 6 04/07/2024 10:01:21 04/07/2024 12:10:42 [id number] Julio Cesar Vega MD , [facility], OFFICE [address] [facility] [place] [address] 6 05/29/2024 11:03:25 05/29/2024 12:36:01 [id number] Kevin Felix MD [facility] , [address] [address] 06/04/2024 11:58:33 06/04/2024 14:07:04 [id number] MANNIE ISRAEL DO , [facility], OFFICE [address] [place] [address] 6 08/08/2024 10:32:46 08/11/2024 10:28:41 [id number] Rick Andrew MD , [facility], OFFICE [address] [place] [address] 6 08/22/2024 11:21:02 08/22/2024 14:00:24 [id number] Christa Oneal , [facility], OFFICE [address] [facility] [place] [address] 6 09/12/2024 13:20:43 09/12/2024 14:03:52 [id number] Julio Cesar Vega MD , [facility], OFFICE [address] [place] [address] 6 12/26/2024 09:02:37 12/26/2024 09:36:12 Health Concerns Section Related Observation LastModified by Organization Detai ls LastModified Time None Recorded Concern Status LastModified by Organization Details LastModified Time None Recorded Advance Directives Directive Y: jazmin Payers Encounter Date Sequence Insurance Name Policy Number Policy Leon Covered Member ID Leon Member ID Guarantor Name 05/29/2024 1 [facility] DIRECT CONNECTORCARE TYPE I (HMO) [id number] Marion Foy [id number] Marion Foy 08/08/2024 1 [facility] [employer]CARE TYPE I (HMO) [id number] Marion Foy [id number] Marion Foy 08/22/2024 1 [facility] [employer]CARE TYPE I (HMO) [id number] Marion Foy [id number] Marion Foy 09/12/2024 1 [facility] [employer] TYPE I (HMO) [id number] Marion Foy [id number] Marion Foy 12/26/2024 1 [facility] [employer] CONNE[employer]CARE TYPE I (HMO) [id number] Marion Foy [id number] Marion Foy OBGyn Episode No OBEpisode recorded.
--- OUTSIDE RECORDS SUMMARY | 2025-03-16 11:13 | XMS_ITS | Data Portability ---
Author Organization MD Natividad [facility]OWN[facility] Address [address] [facility] [place] [address] Assessment No assessment recorded. Plan of Treatment Reminders Order Date Submit Date Provider Last Modified By Organization Details Last Modified Time Details Appointments None recorded. Lab rapid strep group A, throat 2018 019 yaneli In-Office Order, Internal Use Only DO Not Attach Compendium DO Not Attach Compendium, Do Not Delete/merge, [id number] 19:25:33 Referral None recorded. Procedures None recorded. Surgeries None recorded. Imaging None recorded. Medication Orders amoxicilli n 875 mg-potassi um clavulanat e 125 mg tablet 2018 019 [facility], [address] [place], [address], 9 19:05:10 ibuprofen 600 mg tablet 2018 019 [facility], [address] [place], [address], 9 19:05:08 Patient TargetsNo targets recorded. Patient Instructions Encounter Date Encounter Id Patient Instructions Last Modified By Organization Details Last Modified Time 02/07/2019 [id number] sore throat: car e instructions yaneli Not available 02/07/2019 18:53:58 Reason for Referral None Reported. Results Created Date Observation Date Name Description Value Unit Range Abnormal Flag Note LastModifiedBy Organization Detail LastModifiedTime 02/12/20 19 02/11/2019 rapid strep group A, throa t Strep negati ve Not Available In-Office Order Internal Use Only DO Not Attach Compendium DO Not Attach Compendium, Do Not Delete/merge, [id number] 02/07/2019 18:42:21 Result Notes None recorded. Problems No Known Problems Medical Equipment None Reported. Allergies No known drug allergies Medications Name Sig Start Date Stop Date Status Note LastModified by Organization Details LastModified Time ibuprofen 600 mg tablet Take 1 tablet 3 times a day by oral route as needed for 10 days. 019 active Not Available Not Available Not Avai lable amoxicillin 875 mg-potassium clavulanate 125 mg tablet Take 1 tablet every 12 hours by oral route for 7 days. 019 active Not Available Not Available Not Avai lable Vitals Date Recorded Body height Body temperature Respiratory rate Heart rate Systolic blood pressure Diastolic blood pressure Provider Name and Address Organization Details Last Updated DateTime 9 165.1 cm 98.1 [degF] 20 /min 89 /min 126 mm[Hg] 83 mm[Hg] Claud[facility] 9 18:23:31 Social History Question Answer Notes LastModified by Organizat ion Details LastModified Time Tobacco Smoking Status Former Smoker Not Available [facility]/2020 03:24:37 What Was The Date Of Your Most Recent Tobacco Screening? 02/07/2019 [id number] Information not available 08/31/2020 Sex: Unknown Functional Status None recorded. Mental Status None recorded. Family History Nothing Reported. Medical History Condition Response Coronary Artery Disease N Gout N Other N Blood Diseases N Kidney Stones N Hyperthyroidism N Blood Transfusion N Breast Cancer N mrsa exposure N Hypothyroidism N Depression N COPD N Lung Disease N Defects or Inherited Disease N Developmental or Behavioral Disorders N Breast Problem N Anesthesia Complications N Meniere's disease N Anxiety Disorder N Muscle, Joint, or Bone Problems N Obesity N Vision or Eye Problems N Arthritis N Chronic ear infections N Polyps N Infertility N Mental Disorder N Cancer N Varicosities N Stroke N ADHD N Endometriosis N Bladder or Kidney Problems N High Cholesterol N Liver Disease N Headaches N Fibromyalgia N Kidney Disease N Heart Problems N Ear or Hearing Problems N Hospitalizations N Thyroid Problems N GI Problems N Skin Problems N Eating Disorder N Anemia N Constipation N Mental Illness N Ovarian Cancer N Diabetes N Difficulty swallowing N Bedwetting N Seizures/Epilepsy N Tuberculosis N AIDS/HIV N Congestive Heart Failure (CHF) N Eczema N Diverticulitis N Abuse/Domestic Violence N Nasal polyps N Asthma N Allergies Y Reflux/GERD N Hepatitis N Heart Disease N Pulmonary Embolism N Pre-Eclampsia N Hypertension N Chicken Pox N Autism Spectrum Disorder (ASD) N Osteoporosis N Thrombophilias N Gynecological HistoryNo gynecological history recorded. Obstetrics History GPAL:G 0 P 0 0 0 0 Past Encounters Encounter ID Performer Location Encounter Start Date Encounter Closed Date Diagnosis/Indication Diagnosis SNOMED-CT Code Diagnosis ICD10 Code Diagnosis Note [id number] Marcell Song MD Main Office [address] [facility] [place] [address] 02/07/2019 18:04:10 02/07/2019 19:24:34 Pain in throat 830930858 R07.0 pharyngiti s-Tonsilit is without exudates. Sinus headache 2853548 R 51 Headaches from sinuses congestion . OK to treat with nsaids such as Ibuprofen, Aleve pr Tylenol. RTO as needed. Health Concerns Section Related Observation LastModified by Organization Detai ls LastModified Time None Recorded Concern Status LastModified by Organization Details LastModified Time None Recorded Advance Directives Directive None Recorded Payers Encounter Date Sequence Insurance Name Policy Number Policy Leon Covered Member ID Leon Member ID Guarantor Name 02/07/2019 1 [facility] Marion Law [id number] Marion Foy Notes Date Note Type Note Provider Name and Address Organization Details Recorded Time 9 text/html FeverReported bypatient.Quality:symptom s worse during the day Severity:highest fever: (100.3); Duration:intermittent Onset/Timing:first recorded:; Today Context:no recent travel; no tick/insect bites; no new medications; Contact with sick children having strep throat infection Modifying Factors:OTC medication Associated Symptoms:no rashHeadacheReported bypatient.Location:bilate ral Quality:not the worst headache ever Severity:mild Duration:started:; Yesterday Onset/Timing:abrupt onset Context:not related to trauma; Contact with sick children having streptococcal sorethroat Aggravating factors:nothing makes it worse Alleviating factors:OTC medication Associated Symptoms:no vomitingThroat PainReported bypatient.Location:level of pain back of mouth; bilateral Quality:sore Severity:pain level 7/10 Duration:Started yesterday Onset/Timing:abrupt Context:Contact with sick children having streptococcal sorethroat Alleviating Factors:NSAIDs Aggravating Factors:eating Associated Symptoms:no stress; no coughing with sputum Diet History:eating on the run Prior Testsrapid strep Marcell Song MD [address] [facility], [place], [address], MD [facility] 02/07/2019 19:24:29 OBGyn Episode No OBEpisode recorded.
[2025-03-16] MEDS: iohexoL 350 MG/ML 75 ML INFUS..BTL 85 ML IV (11:38)
[2025-03-16 16:24] LABS: Creatinine POC 0.8 mg/dL (0.5-1.4); GFR POC > 60
== END 2025-03-16 10:34 | disposition home or self-care (01) ==
LOC: HO.CT 10:33
PROVIDERS: PCP Family Medicine; Visit Provider Nurse Practitioner Family
DX: N28.1 Cyst of kidney, acquired (principal)
CPT/HCPCS: 74178; 82565; Q9967

== ENCOUNTER → 2025-03-16 10:35 | Outpatient (BNV) | payer OTHER, SELFPAY | PROVIDERS: PCP Family Medicine; Visit Provider Radiology Diagnostic Radiology | DX: N28.1 Cyst of kidney, acquired (principal) | CPT/HCPCS: 74178 ==

== ENCOUNTER 2025-03-24 10:32 | Outpatient (AMB) | payer OTHER, SELFPAY ==
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
--- OUTSIDE RECORDS SUMMARY | 2025-03-24 11:17 | XMS_ITS | Data Portability ---
Author Organization MD Natividad [facility] Address [address] [facility] [place] [address] Assessment No assessment recorded. Plan of Treatment Reminders Order Date Submit Date Provider Last Modified By Organization Details Last Modified Time Details Appointments None recorded. Lab rapid strep group A, throat 2018 019 yaneli In-Office Order, Internal Use Only DO Not Attach Compendium DO Not Attach Compendium, Do Not Delete/merge, [id number] 9 19:25:33 Referral None recorded. Procedures None recorded. Surgeries None recorded. Imaging None recorded. Medication Orders amoxicilli n 875 mg-potassi um clavulanat e 125 mg tablet 2018 019 [facility], [address] [place], [address], 9 19:05:10 ibuprofen 600 mg tablet 2018 019 [facility], [address] [place], [address], 9 19:05:08 Patient TargetsNo targets recorded. Patient Instructions Encounter Date Encounter Id Patient Instructions Last Modified By Organization Details Last Modified Time 02/07/2019 [id number] sore throat: car e instructions yaneli Not available 02/07/2019 18:53:58 Reason for Referral None Reported. Results Created Date Observation Date Name Description Value Unit Range Abnormal Flag Note LastModifiedBy Organization Detail LastModifiedTime 02/12/20 19 02/11/2019 rapid strep group A, throa t Strep negati ve Not Available In-Office Order Internal Use Only DO Not Attach Compendium DO Not Attach Compendium, Do Not Delete/merge, [id number] 02/07/2019 18:42:21 Result Notes None recorded. Problems [...] Body temperature Respiratory rate Heart rate Systolic And Diastolic Provider Name and Address Organization Details Last Updated DateTime 9 165.1 cm 98.1 [degF] 20 /min 89 /min 126/83 mm[Hg] Claudy Song MD - [facility] 9 18:23:31 Social History Question Answer Notes LastModified by Organizat ion Details LastModified Time Tobacco Smoking Status Former Smoker Not Available [facility] 08/31/2020 03:24:37 What Was The Date Of Your Most Recent Tobacco Screening? 02/07/2019 [id number] Information not available 08/31/2020 Sex: Unknown Functional Status None recorded. Mental Status None recorded. Family History Nothing Reported. Medical History Condition Response Coronary Artery Disease N Other N Gout N Kidney Stones N Blood Diseases N Hyperthyroidism N Breast Cancer N Blood Transfusion N mrsa exposure N Lung Disease N COPD N Hypothyroidism N Depression N Developmental or Behavioral Disorders N Defects or Inherited Disease N Breast Problem N Anesthesia Complications N [...] SNOMED-CT Code Diagnosis ICD10 Code Diagnosis Note [id number] Marcell Song MD Main Office [address] [facility] [place] [id number] 02/07/2019 18:04:10 02/07/2019 19:24:34 Pain in throat [id number] R07.0 pharyngiti s-Tonsilit is without exudates. Sinus headache 1020183 R 51 Headaches from sinuses congestion . [...] Leon Member ID Guarantor Name 02/07/2019 1 [facility] [place] [employer] [id number] 1 [place] Foy Notes Date Note Type [...] run Prior Testsrapid strep Marcell Song MD [address] [facility], [place], [id number], Erika HUTCHINSON 02/07/2019 19:24:29 OBGyn Episode No OBEpisode recorded.
== END 2025-03-24 11:06 | disposition home or self-care (01) ==
LOC: HO.HUSH 10:33
PROVIDERS: PCP Family Medicine; Visit Provider Nurse Practitioner Family
DX: N28.1 Cyst of kidney, acquired (principal); R35.1 Nocturia; R35.0 Frequency of micturition; R39.9 Unspecified symptoms and signs involving the genitourinary system; N30.10 Interstitial cystitis (chronic) without hematuria; Z13.9 Encounter for screening, unspecified
CPT/HCPCS: 99213

== ENCOUNTER → 2025-03-24 10:32 | Outpatient (BNVA) | payer OTHER, SELFPAY | PROVIDERS: PCP Family Medicine; Visit Provider Nurse Practitioner Family | DX: N28.1 Cyst of kidney, acquired (principal); R35.1 Nocturia; R35.0 Frequency of micturition; R39.9 Unspecified symptoms and signs involving the genitourinary system; N30.10 Interstitial cystitis (chronic) without hematuria | CPT/HCPCS: 51798; 81003; 99212 ==

== ENCOUNTER → 2025-04-21 10:30 | Outpatient (BNVA) | payer OTHER, SELFPAY | PROVIDERS: PCP Family Medicine; Visit Provider Nurse Practitioner Family | DX: N30.10 Interstitial cystitis (chronic) without hematuria (principal) | CPT/HCPCS: 51700; J0665; J1643; J2003; J2919 ==

== ENCOUNTER → 2025-04-22 13:49 | Outpatient (BNVA) | payer OTHER, SELFPAY | PROVIDERS: PCP Family Medicine; Visit Provider Nurse Practitioner Family | DX: R39.9 Unspecified symptoms and signs involving the genitourinary system (principal) | CPT/HCPCS: 51700; J0665; J1643; J2003; J2919 ==

== ENCOUNTER → 2025-04-23 14:32 | Outpatient (BNVA) | payer OTHER, SELFPAY | PROVIDERS: PCP Family Medicine; Visit Provider Nurse Practitioner Family | DX: N30.10 Interstitial cystitis (chronic) without hematuria (principal) | CPT/HCPCS: 51700 ==

== ENCOUNTER → 2025-04-24 13:52 | Outpatient (BNVA) | payer OTHER, SELFPAY | PROVIDERS: PCP Family Medicine; Visit Provider Nurse Practitioner Family | DX: N30.10 Interstitial cystitis (chronic) without hematuria (principal) | CPT/HCPCS: 51700 ==

== ENCOUNTER → 2025-04-27 11:06 | Outpatient (BNVA) | payer OTHER, SELFPAY | PROVIDERS: PCP Family Medicine; Visit Provider Nurse Practitioner Family | DX: R35.0 Frequency of micturition (principal) | CPT/HCPCS: 51700; J0665; J1643; J2003; J2919 ==

== ENCOUNTER → 2025-05-05 09:59 | Outpatient (BNVA) | payer OTHER, SELFPAY | PROVIDERS: PCP Family Medicine; Visit Provider Nurse Practitioner Family | DX: N30.10 Interstitial cystitis (chronic) without hematuria (principal) | CPT/HCPCS: 51700 ==

== ENCOUNTER → 2025-05-12 14:35 | Outpatient (BNVA) | payer OTHER, SELFPAY | PROVIDERS: PCP Family Medicine; Visit Provider Nurse Practitioner Family | DX: N30.10 Interstitial cystitis (chronic) without hematuria (principal) | CPT/HCPCS: 51700 ==

== ENCOUNTER → 2025-05-19 10:30 | Outpatient (BNVA) | payer OTHER, SELFPAY | PROVIDERS: PCP Family Medicine; Visit Provider Nurse Practitioner Family | DX: N30.10 Interstitial cystitis (chronic) without hematuria (principal) | CPT/HCPCS: 51700; J0665; J1643; J2003; J2919 ==

== ENCOUNTER → 2025-05-27 10:34 | Outpatient (BNVA) | payer OTHER, SELFPAY | PROVIDERS: PCP Family Medicine; Visit Provider Nurse Practitioner Family | DX: N30.10 Interstitial cystitis (chronic) without hematuria (principal) | CPT/HCPCS: 51700 ==

== ENCOUNTER → 2025-06-05 09:11 | Outpatient (BNVA) | payer OTHER, SELFPAY | PROVIDERS: PCP Family Medicine; Visit Provider Nurse Practitioner Family | DX: N30.10 Interstitial cystitis (chronic) without hematuria (principal) | CPT/HCPCS: 51700; 51701 ==

== ENCOUNTER 2025-07-23 11:34 | Outpatient (AMB) | payer OTHER, SELFPAY ==
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
--- OUTSIDE RECORDS SUMMARY | 2025-07-23 16:23 | XMS_ITS | Encounter Summary ---
Author Organization [facility] Address [address] [place] [id number] Phone Care Team Providers Care Hydroponics Worker Name Role Phone Hadley Hopkins MD Primary Care Provider [phone] Hadley Hopkins MD Unavailable [phone] Julio Cesar Handley MD Primary Care Prov ider Julio Cesar Handley MD Unavailable + Reason for Referral * MRI/CAT Scan - Closed Specialty Diagnoses / Procedures Referred By Contdakota t Referred To Contact Radiology Diagnoses Pain in finger of left hand Procedures MRI Angio Upper Extremity (Left) Rick Andrew MD Phone: tel: fax: [email or web address] Referral ID Status Reason Start Date Expiration Date Visits Re quested Visits Authorized [id number] Closed 10/03/2022 09/26/2023 1 1 Encounter Details Date Type Department Care Team (Late st Contact Info) Description 10/03/2022 Transcribe Orders Virtual Department [address] [place] [address] Rick Andrew MD [address] [place] [address] [phone] [email or web address] Pain in finger of left hand (Primary Dx) Social History Tobacco Use Types Packs/Day Years Used Date Smoking Tobacco: Former Cigarettes Smokeless Tobacco: Never Comments:smokes on and off Alcohol Use Standard Drinks/Week Comments Not Currently 0 (1 standard drink = 0.6 oz pure alcohol) social drinker; unable to drink since gallbladder issue Comments No Sex and Gender Information Value Date Recorded Sex Assigned at Female 05/24/2020 11:24 PM EDT Legal Sex Female 7:32 PM EST Gender Identity Female 05/24/2020 11:24 PM EDT Sexual Orientation Don't know 01/01/2025 8: 27 PM EST Occupation Industry Job Start Date Job End Date unemployed Not on file Not on file Not on file documented as of this encounter Plan of Treatment Upcoming Encounters Date Type Department Care Team (Late st Contact Info) Description 02/02/2025 Procedure Pass [address] [address] 08/21/2025 2:00 PM EDT Appointment [address] [address] Julio Cesar Handley MD [address] [place] [phone] [email or web address] documented as of this encounter Results * MRI ANGIO UPPER EXTREMITY WITH AND WITHOUT CONTRAST (LEFT) (10/03/2022 1:38 PM EST) Anatomical Region Laterality Modality Arm Left, Elbow Left, Forear m Left, Wrist Left, Hand Left Magnetic Resonance 10/03/2022 5:30 PM EST Impressions 10/03/2022 5:50 PM EST 1. Proximal ulnar artery occlusion. 2. Patent radial artery. 3. No visualization of the superficial or deep palmar arch and under filling of the digital vessels. 4. Etiology of vessel occlusions not defined. Narrative 10/03/2022 5:50 PM EST MRI ANGIO UPPER EXTREMITY WITH AND WITHOUT CONTRAST (LEFT) HISTORY: Left upper extremity/hand ischemic changes. Painful blanching index finger. Previous MRA showing poor visibility of distal forearm and hand. Patient returns for MRA imaging centered at the level of the forearm. TECHNIQUE: MRA OF LEFT UPPER EXTREMITY: 1.5T MR angiogram of the left upper extremities was performed with and without gadolinium. Due to the nature of 3D MRA acquisition, only limited imaging of the bones and soft tissues is available for interpretation. 3D IMAGES WITH REFORMATTING AND POST-PROCESSING RECONSTRUCTIONS WERE PERFORMED AND INTERPRETED COMPARISON: MR angiography 11/27/2021. FINDINGS: ARTERIAL: Normal contour, caliber and signal intensity distal brachial artery. Enhancing vessels in the forearm shown previously are now revealed to represent vessel toward the mid to radial side of the forearm and within the mid forearm, favored to reflect somewhat atypical course of the radial artery and the intraosseous artery. Occlusion of small caliber, faint signal ulnar artery within the proximal to mid forearm. No visualization of the distal ulnar artery. Uniform signal intensity of vessel favored to be the radial artery with subsequent perfusion of the thumb and radial side of the hand. Separate deep vessel (intraosseous artery) provides perfusion to midportion of the hand. No clear demonstration of superficial or deep palmar arches. There is underfilling of the digital arteries particularly radial side of the index finger and ring finger and small finger. Hypoperfusion to the ulnar side of the hand. Subsequent filling of venous drainage from both sides of the hand. VENOUS: Venous drainage to both radial and ulnar aspects of the forearm intact. Limited imaging of the bones and soft tissues of the upper extremities demonstrates no significant abnormalities. Procedure Note Willie High MD - 10/03/2022 MRI ANGIO UPPER EXTREMITY WITH AND WITHOUT CONTRAST (LEFT) HISTORY: Left upper extremity/hand ischemic changes. Painful blanchingindex finger. Previous MRA showing poor visibility of distal forearm andhand. Patient returns for MRA imaging centered at the level of theforearm. TECHNIQUE: MRA OF LEFT UPPER EXTREMITY: 1.5T MR angiogram of the left upper extremities was performed with andwithout gadolinium. Due to the nature of 3D MRA acquisition, only limited imaging of the bonesand soft tissues is available for interpretation. 3D IMAGES WITH REFORMATTING AND POST-PROCESSING RECONSTRUCTIONS WEREPERFORMED AND INTERPRETED COMPARISON: MR angiography 11/27/2021. FINDINGS: ARTERIAL: Normal contour, caliber and signal intensity distal brachial artery.Enhancing vessels in the forearm shown previously are now revealed torepresent vessel toward the mid to radial side of the forearm and withinthe mid forearm, favored to reflect somewhat atypical course of the radialartery and the intraosseous artery. Occlusion of small caliber, faintsignal ulnar artery within the proximal to mid forearm. No visualizationof the distal ulnar artery. Uniform signal intensity of vessel favored carol ann the radial artery with subsequent perfusion of the thumb and radialside of the hand. Separate deep vessel (intraosseous artery) providesperfusion to midportion of the hand. No clear demonstration of superficialor deep palmar arches. There is underfilling of the digital arteriesparticularly radial side of the index finger and ring finger and smallfinger. Hypoperfusion to the ulnar side of the hand. Subsequent filling ofvenous drainage from both sides of the hand. VENOUS: Venous drainage to both radial and ulnar aspects of the forearm intact. Limited imaging of the bones and soft tissues of the upper extremitiesdemonstrates no significant abnormalities. IMPRESSION: 1. Proximal ulnar artery occlusion. 2. Patent radial artery. 3. No visualization of the superficial or deep palmar arch and underfilling of the digital vessels. 4. Etiology of vessel occlusions not defined. us Rick Andrew MD IMG MR EXTREMITY Final Resu lt documented in this encounter Visit Diagnoses Diagnosis Pain in finger of left hand- Primary Pain in soft tissues of limb Pain in finger of left hand Pain in soft tissues of limb documented in this encounter Care Teams Hydroponics Worker Relationship Specialty Start Date End Date Hadley Hopkins MD PCP - General Internal Medicine 01/22/19 10/08/22 Julio Cesar Handley MD [address] [place] [address] [email or web address] PCP - General Family Medicine 10/09/22 Hadley Hopkins MD [address] [place] [address] Insurance Assigned Provider 08/07/20 12/02/22 Julio Cesar Handley MD [address] [place] [address] [email or web address] Insurance Assigned Provider 12/02/22 07/07/23 documented as of this encounter Additional Source Comments The information contained in this document represents components of the legal health record. It is not the complete legal health record.[facility]
--- OUTSIDE RECORDS SUMMARY | 2025-07-23 16:23 | XMS_ITS | Encounter Summary ---
Author Organization [facility] Address [address] [place] [address] Phone Care Team Providers Care Batch Freezer Operator Name Role Phone Hadley Hopkins MD Primary Care Provider [phone] Hadley Hopkins MD Unavailable [phone] Julio Cesar Handley MD Primary Care Prov ider Julio Cesar Handley MD Unavailable + Reason for Referral * MRI/CAT Scan - Closed Specialty Diagnoses / Procedures Referred By [employer] t Referred To Contact Radiology Diagnoses Finger pain, left Procedures MRI Angio Upper Extremity (Left) Rick Andrew MD Phone: tel: fax: [email or web address] Referral ID Status Reason Start Date Expiration Date Visits Re quested Visits Authorized [id number] Closed 09/25/2022 09/26/2023 1 1 Encounter Details Date Type Department Care Team (Late st Contact Info) Description 09/25/2022 Transcribe Orders Virtual Department [address] [place] [address] Rick Andrew MD [address] [place] [phone] [email or web address] Finger pain, left (Primary Dx) Social History Tobacco Use Types [...] st Contact Info) Description 02/02/2025 Procedure Pass [address] [address] 08/21/2025 2:00 PM EDT Appointment [address] [address] Julio Cesar Handley MD [address] [place] [phone] [email or web address] documented as of this encounter Results * MRI ANGIO UPPER EXTREMITY WITH AND WITHOUT CONTRAST (LEFT) (09/27/2022 3:43 PM EST) Anatomical Region Laterality Modality Arm Left, Elbow Left, Forear m Left, Wrist Left, Hand Left Magnetic Resonance 09/29/2022 10:5 3 AM EST Impressions 09/29/2022 6:57 PM EST 1. Normal appearance to the imaged aorta and origins of brachiocephalic arteries accounting for variant anatomy (bovine arch). 2. Normal appearance to left axillary artery, brachial artery and proximal radial and ulnar arteries. 3. Suboptimal visualization of midportion of left subclavian artery and distal left forearm vessels and hand vessels. 4. Patient will be contacted and additional imaging performed centered at the level of the forearm and hand with dynamic IV contrast enhancement, ideally achieving more definitive assessment of the distal left upper extremity. Narrative 09/29/2022 6:57 PM EST MRI ANGIO UPPER EXTREMITY WITH AND WITHOUT CONTRAST (LEFT) TECHNIQUE: MRA OF LEFT UPPER EXTREMITY: 1.5T MR angiogram of the left upper extremities was performed with and without gadolinium. Due to the nature of 3D MRA acquisition, only limited imaging of the bones and soft tissues is available for interpretation. 3D IMAGES WITH REFORMATTING AND POST-PROCESSING RECONSTRUCTIONS WERE PERFORMED AND INTERPRETED INDICATIONS: Left upper extremity/hand ischemic changes. Painful blanching of left index finger. Question embolism or flow limiting stenosis. COMPARISON: No comparison vascular imaging available. FINDINGS: Greatest detail was provided on dynamic contrast-enhanced sequences which includes the thoracic aorta and left upper extremity to level of the proximal forearm. 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 Uniform luminal signal within the thoracic as well as abdominal aorta and brachiocephalic vessel origins. No evidence of dissection or flow-limiting stenosis. Respiratory motion artifact degrades signal quality of the midportion of the left subclavian artery, not definitively assessed. Left axillary and brachial arteries are normal in contour, caliber and signal intensity. Proximal radial and ulnar arteries are normal in appearance. Distal forearm vessels not included in [id number] on dynamic imaging. 2-D veei-ql-yplsnl images include distal forearm and hand poor signal quality. Patent distal ulna and radial arteries. Beaded appearance to vessels which may reflect signal loss due to slow flow. Poor visualization of hand vessels. Superficial and deep palmar arch and branch vessels to the digits cannot be assessed. Procedure Note Willie High MD - 09/29/2022 MRI ANGIO UPPER EXTREMITY WITH AND WITHOUT CONTRAST (LEFT) TECHNIQUE: MRA OF LEFT UPPER EXTREMITY: 1.5T MR angiogram of the left upper extremities was performed with andwithout gadolinium. Due to the nature of 3D MRA acquisition, only limited imaging of the bonesand soft tissues is available for interpretation. 3D IMAGES WITH REFORMATTING AND POST-PROCESSING RECONSTRUCTIONS WEREPERFORMED AND INTERPRETED INDICATIONS: Left upper extremity/hand ischemic changes. Painful blanchingof left index finger. Question embolism or flow limiting stenosis. COMPARISON: No comparison vascular imaging available. FINDINGS: Greatest detail was provided on dynamic contrast-enhanced sequences whichincludes the thoracic aorta and left upper extremity to level of theproximal forearm. 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 Uniform luminalsignal within the thoracic as well as abdominal aorta and brachiocephalicvessel origins. No evidence of dissection or flow-limiting stenosis. Respiratory motion artifact degrades signal quality of the midportion ofthe left subclavian artery, not definitively assessed. Left axillary and brachial arteries are normal in contour, caliber andsignal intensity. Proximal radial and ulnar arteries are normal inappearance. Distal forearm vessels not included in [id number]-[id number] on dynamic imaging.2-D ewsb-ws-kpmrph images include distal forearm and hand poor signalquality. Patent distal ulna and radial arteries. Beaded appearance tovessels which may reflect signal loss due to slow flow. Poor visualizationof hand vessels. Superficial and deep palmar arch and branch vessels tothe digits cannot be assessed. IMPRESSION: 1. Normal appearance to the imaged aorta and origins of brachiocephalicarteries accounting for variant anatomy (bovine arch). 2. Normal appearance to left axillary artery, brachial artery and proximalradial and ulnar arteries. 3. Suboptimal visualization of midportion of left subclavian artery anddistal left forearm vessels and hand vessels. 4. Patient will be contacted and additional imaging performed centered atthe level of the forearm and hand with dynamic IV contrast enhancement,ideally achieving more definitive assessment of the distal left upperextremity. Rick Andrew MD IMG MR EXTREMITY Final Resu lt documented in this encounter Visit Diagnoses Diagnosis Finger pain, left- Primary Pain in soft tissues of limb Finger pain, left Pain in soft tissues of limb documented in this encounter Care Teams Batch Freezer Operator Relationship Specialty Start Date End Date Hadley Hopkins MD PCP - General Internal Medicine 01/22/19 10/08/22 Julio Cesar Handley MD [address] [place] [phone] [email or web address] PCP - General Family Medicine 10/09/22 Hadley Hopkins MD [address] [place] [address] [email or web address] Insurance Assigned Provider 08/07/20 12/02/22 Julio Cesar Handley MD [address] [place] [address] [email or web address] Insurance Assigned Provider 12/02/22 07/07/23 documented as of this encounter Additional Source Comments The information contained in this document represents components of the legal health record. It is not the complete legal health record.[facility]
--- OUTSIDE RECORDS SUMMARY | 2025-07-23 16:23 | XMS_ITS | Encounter Summary ---
Author Organization [facility] Address [address] [place] [address] Phone Care Team Providers Care Housecleaner Name Role Phone Hadley Hopkins MD Unavailable [phone] Julio Cesar Handley MD Primary Care Prov ider Julio Cesar Handley MD Unavailable + Encounter Details Date Type Department Care Team (Late Contact Info) Description 11/22/2022 Transcribe Orders Virtual Department [address] [place] [address] Kat Perry, MINESH [address] [place] [address] [email or web address] Breast screening (Primary Dx) Social History Tobacco Use Types [...] st Contact Info) Description 02/02/2025 Procedure Pass [address] [address] 08/21/2025 2:00 PM EDT Appointment [address] [address] Julio Cesar Handley MD [address] [place] [address] [email or web address] documented as of this encounter Results * BI MAMMOGRAM SCREENING WITH TOMOSYNTHESIS WITH CAD (BILATERAL) (03/13/2023 10:20 AM EDT) Anatomical Region Laterality Modality Breast Left, Breast Right, Breast Bilateral Bila teral Mammography 03/16/2023 8:03 PM EDT Impressions 03/16/2023 8:05 PM EDT BILATERAL BREASTS: Negative, no specific mammographic evidence of malignancy. Normal interval follow-up is recommended in 12 months. BI-RADS: BI-RADS CATEGORY: 1 - Negative. DENSITY: There are scattered fibroglandular densities. Narrative 03/16/2023 8:05 PM EDT STUDY: BI MAMMOGRAM SCREENING WITH TOMOSYNTHESIS WITH CAD (BILATERAL) TECHNIQUE: Bilateral full-field digital screening mammography is obtained and read in conjunction with computer-aided detection. Tomosynthesis as well as 2-D C view imaging were obtained. COMPARISON: October 07, 2021 BREAST COMPOSITION: There are scattered areas of fibroglandular density BILATERAL BREASTS: No significant masses, suspicious calcifications or other abnormalities are seen in either breast. Procedure Note Teresa Browning MD - 03/16/2023 STUDY: BI MAMMOGRAM SCREENING WITH TOMOSYNTHESIS WITH CAD (BILATERAL) TECHNIQUE: Bilateral full-field digital screening mammography is obtainedand read in conjunction with computer-aided detection. Tomosynthesis aswell as 2-D C view imaging were obtained. COMPARISON: October 07, 2021 BREAST COMPOSITION: There are scattered areas of fibroglandulardensity BILATERAL BREASTS: No significant masses, suspicious calcifications orother abnormalities are seen in either breast. IMPRESSION: BILATERAL BREASTS: Negative, no specific mammographic evidence ofmalignancy. Normal interval follow-up is recommended in 12 months. BI-RADS: BI-RADS CATEGORY: 1 - Negative. DENSITY: There are scattered fibroglandular densities. Kat Perry LEPIDOPTERIST IMG MG EXAMS Rebekah l Result documented in this encounter Visit Diagnoses Diagnosis Breast screening- Primary Breast screening, unspecified Breast screening Breast screening, unspecified documented in this encounter Care Teams Housecleaner Relationship Specialty Start Date End Date Julio Cesar Handley MD [address] [place] [address] [email or web address] PCP - General Family Medicine 10/09/22 Hadley Hopkins MD [address] [place] [address] Insurance Assigned Provider 08/07/20 12/02/22 Julio Cesar Handley MD [address] [place] [address] [email or web address] Insurance Assigned Provider 12/02/22 07/07/23 documented as of this encounter Additional Source Comments The information contained in this document represents components of the legal health record. It is not the complete legal health record.[facility]
--- OUTSIDE RECORDS SUMMARY | 2025-07-23 16:23 | XMS_ITS | Encounter Summary ---
Author Organization [facility] Address [address] [place] [address] [place] [address] Phone Care Team Providers Care Poultry Husbandry Worker Name Role Phone Julio Cesar Handley MD Primary Care Prov ider Encounter Details Date Type Department Care Team (Late st Contact Info) Description 01/28/2024 Transcribe Orders Virtual Department [address] [place] [address] Julio Cesar Handley MD [address] [place] [phone] [email or web address] Breast screening (Primary Dx) Social History Tobacco Use Types Packs/Day Years Used Date Smoking Tobacco: Former Cigarettes Smokeless Tobacco: Never Comments:smokes on and off Alcohol Use Standard Drinks/Week Comments Not Currently 0 (1 standard drink = 0.6 oz pure alcohol) social drinker; unable to drink since gallbladder issue Education Answer Date Recorded Are you interested in more education? Not on florin e 02/22/2023 Are you concerned about learning? Not on file 02/22/2023 No 02/22/2023 No 02/22/2023 Digital Access Answer Date Recorded No 03/26/2023 No 03/26/2023 Reliable internet access at home? Not on file 03/26/2023 Device with a working camera? Not on file Comments No Sex and Gender Information Value [...] st Contact Info) Description 02/02/2025 Procedure Pass [address] [address] 08/21/2025 2:00 PM EDT Appointment [address] [address] Julio Cesar Handley MD [address] [place] [phone] [email or web address] documented as of this encounter Results * BI MAMMOGRAM SCREENING WITH TOMOSYNTHESIS WITH CAD (BILATERAL) (04/11/2024 1:00 PM EDT) Anatomical Region Laterality Modality Breast Left, Breast Right, Breast Bilateral Bila teral Mammography 04/14/2024 12:2 5 PM EDT Impressions 04/14/2024 12:26 PM EDT No mammographic evidence of malignancy in either breast. Annual screening mammography is recommended. BI-RADS 1 NEGATIVE The patient will be notified of the results and recommendations. Narrative 04/14/2024 12:26 PM EDT BI MAMMOGRAM SCREENING WITH TOMOSYNTHESIS WITH CAD (BILATERAL) Additional patient information: Screening. COMPARISON: Comparison is made with relevant prior imaging. Breast composition: There are scattered areas of fibroglandular density. FINDINGS: No abnormal masses, suspicious calcifications, or other significant findings are identified mammographically in either breast. Procedure Note Cristiane Bourgeois MD - 04/14/2024 BI MAMMOGRAM SCREENING WITH TOMOSYNTHESIS WITH CAD (BILATERAL) Additional patient information: Screening. COMPARISON: Comparison is made with relevant prior imaging. Breast composition: There are scattered areas of fibroglandular density. FINDINGS: No abnormal masses, suspicious calcifications, or other significantfindings are identified mammographically in either breast. IMPRESSION: No mammographic evidence of malignancy in either breast. Annual screening mammography is recommended. BI-RADS 1 NEGATIVE The patient will be notified of the results and recommendations. Julio Cesar Vega MD IMG MG EXAMS Fi nal Result documented in this encounter Visit Diagnoses Diagnosis Breast screening- Primary Breast screening, unspecified Breast screening Breast screening, unspecified documented in this encounter Care Teams Poultry Husbandry Worker Relationship Specialty Start Date End Date Julio Cesar Handley MD [address] [place] [phone] [email or web address] PCP - General Family Medicine 10/09/22 documented as of this encounter Additional Source Comments The information contained in this document represents components of the legal health record. It is not the complete legal health record.[facility]
--- OUTSIDE RECORDS SUMMARY | 2025-07-23 16:23 | XMS_ITS | Encounter Summary ---
Author Organization [facility] Address [address] [place] [address] [place] [address] Phone Care Team Providers Care Thermocouple Tester Name Role Phone Julio Cesar Handley MD Primary Care Prov ider Encounter Details Date Type Department Care Team (Late st Contact Info) Description 01/01/2025 Ancillary Orders [facility], X-Ray - [address] [address] Britt Salmeron PA [address] [place] [phone] SBO (small bowel obstruction) (Primary Dx) Social History Tobacco Use Types [...] with a working camera? Not on file Intimate Partner Violence Answer Date R ecorded Are you denied basic needs s uch as food, clothing, or medical care? No 01/01/2025 In the past 12 months have y ou been in a relationship with a person who hurts, threatens, or tries to control you? No 01/01/2025 Are you denied basic needs s uch as food, clothing, or medical care? No 01/01/2025 In the past 12 months have y ou been in a relationship with a person who hurts, threatens, or tries to control you? No 01/01/2025 Comments No Sex and Gender Information Value Date Recorded Sex Assigned at Female 05/24/2020 11:24 PM EDT Legal Sex Female 7:32 PM EST Gender Identity Female 05/24/2020 11:24 PM EDT Sexual Orientation Don't know 01/01/2025 8: 27 PM EST Occupation Industry Job Start Date Job End Date unemployed Not on file Not on file Not on file documented as of this encounter Functional Status * Calculated C-SSRS Risk Score (Lifetime/Recent) Answer Date of Assessment Author No Risk Indicated 01/01/2025 7:00 PM Vero Dawson RN * [place] Suicide Severity Rating Scale (Screener/Recent Self-Report) Question Answer Date of Assessment Author 1. Wish to be (Past 1 Month) No 01/01/2025 7:00 PM Shadia Hinton RN 2. Non-Specific Active Suicidal Thoughts (Past 1 Month) No 01/01/2025 7:00 PM Shadia Hinton RN 6. Suicidal Behavior (Lifetime) No 01/01/2025 7:00 PM Shadia Hinton RN documented as of this encounter Plan of Treatment Upcoming Encounters Date Type Department Care Team (Late st Contact Info) Description 02/02/2025 Procedure Pass [address] [address] 08/21/2025 2:00 PM EDT Appointment [address] [address] Julio Cesar Handley MD [address] [place] [phone] [email or web address] documented as of this encounter Results * XR Abdomen Series Supine with Decubitus/Erect and Single View Chest (01/01/2025 2:08 PM EST) Anatomical Region Laterality Modality Abdomen, Chest Computed Radiogr aphy 01/01/2025 3:52 PM EST Impressions 01/01/2025 4:07 PM EST Mildly dilated air-filled loops of large and small bowel with scattered air- fluid levels on the upright projection. Air is demonstrated within the rectum. Findings raise concern for ileus or partial obstruction. CT recommended for further evaluation Findings discussed by Adenike Cooper MD with Yoselyn Harrison NP, covering for BORA Salmeron on 01/01/2025 at 4:04 PM. A clinically significant result was initiated on 01/01/2025 4:06 PM, Message ID [id number]. Narrative 01/01/2025 4:07 PM EST XR ABDOMEN SERIES SUPINE WITH DECUBITIS/ERECT AND SINGLE VIEW CHEST Referring clinician's provided indication for this examination in [facility]: Pain COMPARISON: HMA XR KUB ABDOMEN SINGLE VIEW ; A CT ABDOMEN PELVIS w CONTRAST FINDINGS: CHEST:The lungs are well-inflated. No focal airspace opacity demonstrated radiographically. Radiographic appearance of the cardiomediastinal silhouette within normal limits. ABDOMEN: Surgical clips at the gallbladder fossa. There are mildly dilated air- filled loops of large and small bowel with scattered air-fluid levels on the upright projection. Air is demonstrated within the rectum. Multilevel degenerative changes of the spine with dextrocurvature of the mid lumbar spine. Procedure Note Adenike Cooper MD - 01/01/2025 XR ABDOMEN SERIES SUPINE WITH DECUBITIS/ERECT AND SINGLE VIEW CHEST Referring clinician's provided indication for this examination in [facility]:Pain COMPARISON: HMA XR KUB ABDOMEN SINGLE VIEW ; HMA CT ABDOMENPELVIS w CONTRAST FINDINGS: CHEST:The lungs are well-inflated. No focal airspace opacity demonstratedradiographically. Radiographic appearance of the cardiomediastinalsilhouette within normal limits. ABDOMEN: Surgical clips at the gallbladder fossa. There are mildly dilatedair- filled loops of large and small bowel with scattered air-fluid levelson the upright projection. Air is demonstrated within the rectum. Multilevel degenerative changes of the spine with dextrocurvature of themid lumbar spine. IMPRESSION: Mildly dilated air-filled loops of large and small bowel with scatteredair-fluid levels on the upright projection. Air is demonstrated within therectum. Findings raise concern for ileus or partial obstruction. CTrecommended for further evaluation Findings discussed by Adenike Cooper MD with Yoselyn Harrison NP, [facility] BOR[facility] Salmeron on 01/01/2025 at 4:04 PM. A clinically significant result was initiated on 01/01/2025 4:06 PM, MessageID [id number]. us Britt SAHNI IMG XR ABDOMEN Final Resul t documented in this encounter Visit Diagnoses Diagnosis SBO (small bowel obstruction) Unspecified intestinal obstruction SBO (small bowel obstruction)- Primary Unspecified intestinal obstruction documented in this encounter Care Teams Thermocouple Tester Relationship Specialty Start Date End Date Julio Cesar Handley MD [address] [place] [phone] [email or web address] PCP - General Family Medicine 10/09/22 documented as of this encounter Additional Source Comments The information contained in this document represents components of the legal health record. It is not the complete legal health record.[facility]
--- OUTSIDE RECORDS SUMMARY | 2025-07-23 16:23 | XMS_ITS | Clinical Summary ---
Author Organization [facility] Address [address] [place] [address] [place] [address] Phone Care Team Providers Care Accounts Payable Clerk Name Role Phone Julio Cesar Handley MD Primary Care Prov ider Allergies No known active allergies Medications omeprazole (PRILOSEC) 20 MG capsule Take 40 mg by mouth daily. Active cholecalciferol (VITAMIN D3) 2,000 unit capsule Take by mouth daily. Active Hospital, Clinic, or Other Facility Administered Medication Ordered Dose Route Frequency Start Date End Date Status triamcinolone acetonide (KENALOG-40) 40 mg/mL injection 80 mgIndications:Post-tr aumatic osteoarthritis of left knee 80 mg IAtc Once 07/09/2025 10/07/2025 Active BUPivacaine (PF) (MARCAINE) 0.25% injection 2 mLIndications:Post-tr aumatic osteoarthritis of left knee 2 mL See Adm Inst Once 07/09/2025 10/07/2025 Active lidocaine (XYLOCAINE) 1% injection 2 mLIndications:Post-tr aumatic osteoarthritis of left knee 2 mL Infil Once 07/09/2025 10/07/2025 Active Active Problems Problem Noted Date Diagnosed Date Polyarthralgia 03/25/2024 Assessment & Plan (03/25/2024 2:52 PM EDT): No specific objective e/o underlying inflammatory arthritis though pattern of up to 2 hrs duration is suggestive. Noted benefit with respect to hip pain in particular with current regular yoga practice, in addition to deliberate wt loss. Could trial rx NSAID pending results of labs and x-ray though no clear current indication for ongoing rheum-specific mgmt. Low titer MARTHA 1:80 ho not clinically useful; MARTHA is generally not recommended in w/u of multiple joint pain. Right ankle effusion 03/25/2024 Overview (03/25/2024): 09/2023 non-inflammatory / no crystals Spontaneous onset and resolution ? Remote right ankle sprain Assessment & Plan (03/25/2024 2:51 PM EDT): Recurrence of significant soft tissue swelling over lateral malleolus; question of remote trauma as above - otherwise difficult to explain non-inflammatory ankle effusion. Repeat x-ray today for ? recurrent joint effusion. Morning stiffness of joints 03/25/2024 Assessment & Plan (03/25/2024 2:52 PM EDT): 2 hour duration s/o but not specific for underlying inflammatory arthritis as above; exam today is notable for absence of small joint synovitis Status post laparoscopic cholecystectomy 022 Biliary colic 07/07/2022 Assessment & Plan (07/07/2022 4:39 PM EDT): This is a 61-year-old lady who has a longstanding history of biliary colic. She is interested in undergoing laparoscopic cholecystectomy so she does not have any further abdominal discomfort. I have discussed laparoscopic cholecystectomy in detail including risk benefits and alternatives and the patient would like to proceed. She will follow-up with me in 2 weeks following the procedure. She does not require any preoperative blood work or radiologic studies. Impacted cerumen 08/19/2012 Overview (12/19/2014): Impacted cerumen Otitis externa 08/19/2012 Overview (12/19/2014): Otitis externa Encounters Date Type Department Care Team Description 07/09/2025 10:40 AM EDT Office Visit [facility] [address] [place] [address] Deb Morris PA-C Freeman, Jacob Nathan, PA-C Post-traumatic osteoarthritis of left knee (Primary Dx) from Last 3 Months Immunizations Immunization Administration Dates Next Due Rabies Fibroblast Culture 05/10/2021,05/07/2021 Rabies Immune Globulin 05/07/2021 Family History Medical History Relation Comments Drug use disorder Brother Colon cancer Mother Breast cancer Neg Hx Relation Status Comments Brother Alive Father Mother Sister Alive Social History Tobacco Use Types Packs/Day Years Used Date Smoking Tobacco: Former Cigarettes Smokeless Tobacco: Never Tobacco Cessation:Counseling Given: Not Answered Comments:smokes on and off Alcohol Use Standard [...] as food, clothing, or medical care? No 03/25/2025 In the past 12 months have y ou been in a relationship with a person who hurts, threatens, or tries to control you? No 03/25/2025 Are you denied basic needs s uch as food, clothing, or medical care? No 03/25/2025 In the past 12 months have y ou been in a relationship with a person who hurts, threatens, or tries to control you? No 03/25/2025 Comments No Sex and Gender Information Value Date Recorded Sex Assigned at Female 05/24/2020 11:24 PM EDT Legal Sex Female 7:32 PM EST Gender Identity Female 05/24/2020 11:24 PM EDT Sexual Orientation Don't know 01/01/2025 8: 27 PM EST Occupation Industry Job Start Date Job End Date unemployed Not on file Not on file Not on file Last Filed Vital Signs Vital Sign Reading Time Taken Comments Blood Pressure 113/77 03/25/2025 11:17 PM EDT Pulse 68 03/25/2025 11:17 PM EDT Temperature 35.6 C (96.1 F) 03/25/2025 11:17 PM EDT Respiratory Rate 16 03/25/2025 11:17 PM EDT Oxygen Saturation 98% 03/25/2025 11:17 PM EDT Inhaled Oxygen Concentration - - Weight 100.2 kg (221 lb) 01/01/2025 6:56 PM EST Height 165.1 cm (5' 5 ) 01/01/2025 6:56 PM EST Body Mass Index 36.78 01/01/2025 6:56 PM EST Plan of Treatment Upcoming Encounters Date Type Department Care Team (Late st Contact Info) Description 02/02/2025 Procedure Pass [address] [address] 08/21/2025 2:00 PM EDT Appointment [address] [address] Julio Cesar Handley MD [address] [place] [phone] [email or web address] Health Maintenance Due Date Last Done Comments DEPRESSION SCREENING 1972 SMOKING Hx and SMOKELESS TOBACCO SCREENING 1973 HIV ONE-TIME SCREENING (18-65 YEARS) 1978 PAP SMEAR 1981 COLOGUARD 2005 FIT TEST 2005 FOBT 2005 SIGMOIDOSCOPY 2005 VIRTUAL COLONOSCOPY 2005 Adult Td,Tdap Booster 05/18/2019 05/18/2009, 006 INFLUENZA VACCINE (#1) 2025 , 08/23/2023, 10/03/2022, Additional history exists ZOSTER VACCINES (2 of 2) 06/01/2025 04/06/2025 COVID-19 VACCINE ( season) 2025 11/21/2022, 12/10/2021, 11/11/2020, Additional history exists MAMMOGRAM 04/11/2026 04/11/2024, 02/26, 10/07/2021 SCREENING FOR DIABETES 01/02/2028 01/01/2025, 2022 LIPID PANEL 03/09/2028 03/09/2023, 03/09/2023 COLONOSCOPY 07/20/2033 07/20/2023, 03/05/2020 COLORECTAL CANCER SCREENING 07/20/2033 RSV VACCINE (1 - 1-dose 75+ series) 2035 HEPATITIS C SCREENING Completed 03/09/2023 PNEUMOCOCCAL VACCINES (50+ years) Completed 04/06/2025 HEPATITIS A VACCINES Aged Out No long er eligible based on patient's age to complete this topic HIB VACCINES Aged Out No longer eligi ble based on patient's age to complete this topic MENINGOCOCCAL VACCINES (ACWY) Aged Out No longer eligible based on patient's age to complete this topic MENINGOCOCCAL VACCINES (B) Aged Out N o longer eligible based on patient's age to complete this topic Medical Devices Implanted Type Area [employer] Device Identifier Shelf Expiration Date Model / Serial / Lot Hardware In Knee Procedures Procedure Name Priority Date/Time Associated Diagnosis Comments BI MAMMOGRAM SCREENING WITH TOMOSYNTHESIS WITH CAD (BILATERAL) Routine 04/11/2024 1:00 PM EDT Breast screening ENDOSCOPY, COLON 07/20/2023 12:3 7 PM EDT from Last 3 Months or Most Recently Relevant to Health Maintenance Results * BI MAMMOGRAM SCREENING WITH TOMOSYNTHESIS [...] be notified of the results and recommendations. us Julio Cesar Vega MD IMG MG EXAMS Fi nal Result * ENDOSCOPY, COLON (07/20/2023 12:37 PM EDT) Narrative Transcriptions Kevin Epstein MD - 07/20/2023 12:37 PM EDT [employer] Patient Name: Marion Foy Attending MD:: KEVIN EPSTEIN MD, Procedure Date: 07/20/2023 12:37 PM Date of : 1960 Age: 62 Admit Type: Outpatient Gender: Female Room: [place] [address] Referring MD: Julio Cesar Vega MD Exam Type: Colonoscopy Indications: High risk colon cancer surveillance: Personalhistory of colonic polyps, Family history of colon cancerin a first-degree relative before age 60 years, Chronic diarrhea Medications: Monitored Anesthesia Care Procedure: Informed consent was obtained from the patientafter discussion of the indications, limitations, alternatives, benefits, and risks of the procedure. Risks specifically discussed include but are not limited to medication reactions, missed lesions, bleeding, perforation, or the need for emergent surgery. Throughout the procedure, the patient's blood pressure, pulse, end-tidal CO2, and oxygensaturations were monitored continuously. The Olympus adult variable colonoscope [id number] #5 was introduced through the anus and advanced to the terminal ileum. The colonoscopy was performedwithout difficulty. The patient tolerated the procedurewell. The quality of the bowel preparation was good. The terminal ileum, ileocecal valve, appendicealorifice, and rectum were photographed. Complications: No immediate complications. Estimated blood loss:None. Findings: The perianal and digital rectal examinations were normal. A 5 mm polyp was found in the hepatic flexure. The polyp was sessile. The polyp was removed with acold snare. Resection and retrieval were complete. The rectum, recto-sigmoid colon, sigmoid colon, descending colon, splenic flexure, transversecolon, ascending colon, cecum, appendiceal orifice,ileocecal valve, ileum, rectum (on retroflexion) andascending colon (on retroflexion) appeared normal. Biopsieswere taken with a cold forceps for histology. Impression: - One 5 mm polyp at the hepatic flexure, removedwith a cold snare. Resected and retrieved. - The rectum (on retroflexion), ascending colon (on retroflexion), rectum, sigmoid colon, descending colon, splenic flexure, transverse colon, ascending colon, cecum, recto-sigmoid colon, ileocecal valve, appendiceal orifice and terminal ileum are normal. Biopsied. Recommendation: - Discharge patient to home. - A low FODMAP diet is recomended. - Continue present medications. - Await pathology results. - Repeat colonoscopy in 5 years for surveillance. - I will send you pathology results by letter. Ifyou do not get results in 3 weeks telephone feli. KEVIN EPSTEIN MD 07/20/2023 1:07:53 PM This report has been signed electronically. Number of Addenda: 0 Note Initiated On: 07/20/2023 12:37 PM Procedure Code(s): --- Professional --- 00736, Colonoscopy, flexible; with removal of tumor(s), polyp(s), or other lesion(s) by snare technique 11621, 59, Colonoscopy, flexible; with biopsy, single or multiple --- Technical --- 49421, Colonoscopy, flexible; with removal of tumor(s), polyp(s), or other lesion(s) by snare technique 22704, 59, Colonoscopy, flexible; with biopsy, single or multiple Diagnosis Code(s): --- Professional --- Z86.010, Personal history of colonic polyps D12.3, Benign neoplasm of transverse colon (hepatic flexure or splenic flexure) Z80.0, Family history of malignant neoplasm of digestive organs K52.9, Noninfective gastroenteritis and colitis, unspecified --- Technical --- Z86.010, Personal history of colonic polyps D12.3, Benign neoplasm of transverse colon (hepatic flexure or splenic flexure) Z80.0, Family history of malignant neoplasm of digestive organs K52.9, Noninfective gastroenteritis and colitis, unspecified CPT copyright 2021 [employer]. All rights reserved. The codes documented in this report are preliminary and upon medical coder reviewmay be revised to meet current compliance requirements. Procedure Date: 07/20/2023 12:37:[address] [place] [address] Julio Cesar Vega MD GI PROCEDURE ORDER [place] Final Result from Last 3 Months or Most Recently Relevant to Health Maintenance Insurance [facility] [place] [facility] [place] [address] [place] [place] [address] [place] [address] [address] [employer] DIRECT Advance Directives For more information, please contact: [phone] (9AM - 5PM [facility], Sunday-Sunday) * Full Code (Latest Code Status on File) Date Activated Date Inactivated Comments 07/13/2022 9:36 AM Question Answer Comments Code Status Confirmed With: Patient Care Teams Accounts Payable Clerk Relationship Specialty Start Date End Date Julio Cesar Handley MD [address] [place] [phone] [email or web address] PCP - General Family Medicine 10/09/22 Additional Source Comments The information contained in this document represents components of the legal health record. It is not the complete legal health record.[facility]
--- OUTSIDE RECORDS SUMMARY | 2025-07-23 16:23 | XMS_ITS | Patient Health Record ---
Author Organization [facility] Address [address] [place] [address] Care Team Providers Care Filter Screen Cleaner Name Role Phone Hadley Hopkins MD Primary Care Provider Mike Lopez Unavailable [phone] Reason For Referral No Information Medications Medication SIG (Take, Route, Frequency, Duration) Notes Start Date End Date Status Mometasone Furoate 50 MCG/ACT 2 spray(s) intranasally once a day; Duration: 30 day(s) Active Plan Of Treatment No Information Insurance Providers Payer Name Payer Address Payer Phone Subscriber Number Group Number Insured Name Patient Relationship to Insured Coverage Start Date Coverage End Date [facility] [address] [place] [address] [phone] [id number] Marion Foy Self - patient is the insured Medical (General) History Medical History History ICD Code ASTHMA Surgical History Surgery Date(Month/Year) tonsillectomy
--- OUTSIDE RECORDS SUMMARY | 2025-07-23 16:23 | XMS_ITS | Encounter Summary ---
Author Organization [facility] Address [address] [place] [address] Phone Care Team Providers Care Destaticizer Feeder Name Role Phone Hadley Hopkins MD Primary Care Provider [phone] Hadley Hopkins MD Unavailable [phone] Julio Cesar Handley MD Primary Care Prov ider Julio Cesar Handley MD Unavailable + Encounter Details Date Type Department Care Team (Late st Contact Info) Description 09/25/2022 Procedure Pass [facility], [address] [address] Social History Tobacco Use Types Packs/Day Years [...] on file documented as of this encounter Last Filed Vital Signs Vital Sign Reading Time Taken Comments Blood Pressure - - Pulse - - Temperature - - Respiratory Rate - - Oxygen Saturation - - Inhaled Oxygen Concentration - - Weight 95.3 kg (210 lb) 09/26/2022 9:50 AM EST Height 165.1 cm (5' 5 ) 09/26/2022 9:50 AM EST Body Mass Index 34.95 09/26/2022 9:50 AM EST documented in this encounter Plan of Treatment Upcoming Encounters Date Type Department Care Team (Late st Contact Info) Description 02/02/2025 Procedure Pass [address] [address] 08/21/2025 2:00 PM EDT Appointment [address] [address] Julio Cesar Handley MD [address] [place] [address] [email or web address] documented as of this encounter Visit Diagnoses Not on filedocumented in this encounter Care Teams Destaticizer Feeder Relationship Specialty Start Date End Date Hadley Hopkins MD PCP - General Internal Medicine 01/22/19 10/08/22 Julio Cesar Handley MD [address] [place] [phone] [email or web address] PCP - General Family Medicine 10/09/22 Hadley Hopkins MD [address] [place] [phone] Insurance Assigned Provider 08/07/20 12/02/22 Julio Cesar Handley MD [address] [place] [phone] [email or web address] Insurance Assigned Provider 12/02/22 07/07/23 documented as of this encounter Additional Source Comments The information contained in this document represents components of the legal health record. It is not the complete legal health record.[facility]
--- OUTSIDE RECORDS SUMMARY | 2025-07-23 16:23 | XMS_ITS | Encounter Summary ---
Author Organization [facility] Address [address] [place] [address] [place] [address] Phone Care Team Providers Care Riveter Hand Name Role Phone Julio Cesar Handley MD Primary Care Prov ider Encounter Details Date Type Department Care Team (Late st Contact Info) Description 01/28/2024 Procedure Pass [facility], [address] [address] Social History Tobacco Use Types Packs/Day Years [...] st Contact Info) Description 02/02/2025 Procedure Pass [address] [address] 08/21/2025 2:00 PM EDT Appointment [address] [address] Julio Cesar Handley MD [address] [place] [address] [email or web address] documented as of this encounter Visit Diagnoses Not on filedocumented in this encounter Care Teams Riveter Hand Relationship Specialty Start Date End Date Julio Cesar Handley MD [address] [place] [phone] [email or web address] PCP - General Family Medicine 10/09/22 documented as of this encounter Additional Source Comments The information contained in this document represents components of the legal health record. It is not the complete legal health record.[facility]
--- OUTSIDE RECORDS SUMMARY | 2025-07-23 16:23 | XMS_ITS | Encounter Summary ---
Author Organization [facility] Address [address] [place] [address] [place] [address] Phone Care Team Providers Care Supervisor Hand Workers Name Role Phone Julio Cesar Handley MD Primary Care Prov ider Encounter Details Date Type Department Care Team (Late st Contact Info) Description 01/01/2025 Procedure Pass [facility], [facility] Scan - [address] [address] Social History Tobacco Use Types Packs/Day Years [...] 01/01/2025 7:00 PM Vero Dawson RN * Morgan Suicide Severity Rating Scale (Screener/Recent Self-Report) Question [...] Contact Info) Description 02/02/2025 Procedure Pass [address] [address] 08/21/2025 2:00 PM EDT Appointment [address] [address] Julio Cesar Handley MD [address] [place] [address] [email or web address] documented as of this encounter Visit Diagnoses Not on filedocumented in this encounter Care Teams Supervisor Hand Workers Relationship Specialty Start Date End Date Julio Cesar Handley MD [address] [place] [phone] [email or web address] PCP - General Family Medicine 10/09/22 documented as of this encounter Additional Source Comments The information contained in this document represents components of the legal health record. It is not the complete legal health record.[facility]
--- OUTSIDE RECORDS SUMMARY | 2025-07-23 16:23 | XMS_ITS | Encounter Summary ---
Author Organization [facility] Address [address] [place] [address] Phone Care Team Providers Care Residential Supervisor Name Role Phone Hadley Hopkins MD Unavailable [phone] Julio Cesar Handley MD Primary Care Prov ider Julio Cesar Handley MD Unavailable + Encounter Details Date Type Department Care Team (Late st Contact Info) Description 11/22/2022 Procedure Pass [address] [address] Social History Tobacco Use Types Packs/Day Years [...] st Contact Info) Description 02/02/2025 Procedure Pass [address] [address] 08/21/2025 2:00 PM EDT Appointment [address] [address] Julio Cesar Handley MD [address] [place] [phone] [email or web address] documented as of this encounter Visit Diagnoses Not on filedocumented in this encounter Care Teams Residential Supervisor Relationship Specialty Start Date End Date Julio Cesar Handley MD [address] [place] [phone] [email or web address] PCP - General Family Medicine 10/09/22 Hadley Hopkins MD [address] [place] [phone] Insurance Assigned Provider 08/07/20 12/02/22 Julio Cesar Handley MD [address] [place] [phone] [email or web address] Insurance Assigned Provider 12/02/22 07/07/23 documented as of this encounter Additional Source Comments The information contained in this document represents components of the legal health record. It is not the complete legal health record.[facility]
--- OUTSIDE RECORDS SUMMARY | 2025-07-23 16:23 | XMS_ITS | Encounter Summary ---
Author Organization [facility] Address [address] [place] [address] Phone Care Team Providers Care Denture Technician Name Role Phone Lorna Pizarro MD Unavailable Hadley Hopkins MD Primary Care Provider [phone] Hadley Hopkins MD Unavailable [phone] Julio Cesar Handley MD Primary Care Prov ider Julio Cesar Handley MD Unavailable + Encounter Details Date Type Department Care Team (Latest Contact Info) Description 09/10/2019 Transcribe Orders Virtual Department [address] [place] [address] Howard Rangel PA [address] [facility] [address] [place] [address] [email or web address] Acute bronchospasm (Primary Dx) Social History Tobacco Use Types Packs/Day Years Used Date Smoking Tobacco: Some Days Smokeless Tobacco: Never Alcohol Use Standard Drinks/Week Comments Yes 0 (1 standard drink = 0.6 oz pur e alcohol) Comments Unknown Sex and Gender Information Value Date Recorded Sex Assigned at Female 05/24/2020 11:24 PM EDT Legal Sex Female 7:32 PM EST Gender Identity Female 05/24/2020 11:24 PM EDT Sexual Orientation Don't know 01/01/2025 8: 27 PM EST documented as of this encounter Plan of Treatment Upcoming Encounters Date Type Department Care Team (Late st Contact Info) Description 02/02/2025 Procedure Pass [address] [address] 08/21/2025 2:00 PM EDT Appointment [address] [address] Julio Cesar Handley MD [address] [place] [address] [email or web address] documented as of this encounter Visit Diagnoses Diagnosis Acute bronchospasm- Primary documented in this encounter Additional Health Concerns Infection Onset Date Last Indicated Resolved Time CoV-Risk 03/03/2020 03/03/2020 03/17/2020 1:31 AM EDT documented as of this encounter Care Teams Denture Technician Relationship Specialty Start Date End Date Hadley Hopkins MD [address] [place] [address] [email or web address] PCP - General Internal Medicine 01/22/19 10/08/22 Julio Cesar Handley MD [address] [place] [phone] [email or web address] PCP - General Family Medicine 10/09/22 Lorna Pizarro MD [address] [place] [address] [email or web address] 11/28/1812/06 Hadley Hopkins MD [address] [place] [address] [email or web address] Insurance Assigned Provider 08/07/20 12/02/22 Julio Cesar Handley MD [address] [place] [address] [email or web address] Insurance Assigned Provider 12/02/22 07/07/23 documented as of this encounter Additional Source Comments The information contained in this document represents components of the legal health record. It is not the complete legal health record.[facility]
--- OUTSIDE RECORDS SUMMARY | 2025-07-23 16:23 | XMS_ITS | Encounter Summary ---
Author Organization [facility] Address [address] [place] [address] [place] [address] Phone Care Team Providers Care Display Coordinator Name Role Phone Julio Cesar Handley MD Primary Care Prov ider Encounter Details Date Type Department Care Team (Late Contact Info) Description 07/20/2023 Procedure Pass [facility] Endoscopy Admitting Dept Virtual Department [address] [place] [address] Social History Tobacco Use Types Packs/Day Years [...] Encounters Date Type Department Care Team (Late Contact Info) Description 02/02/2025 Procedure Pass [address] [address] 08/21/2025 2:00 PM EDT Appointment [address] [address] Julio Cesar Handley MD [address] [place] [address] [email or web address] documented as of this encounter Visit Diagnoses Not on filedocumented in this encounter Care Teams Display Coordinator Relationship Specialty Start Date End Date Julio Cesar Handley MD [address] [place] [phone] [email or web address] PCP - General Family Medicine 10/09/22 documented as of this encounter Additional Source Comments The information contained in this document represents components of the legal health record. It is not the complete legal health record.[facility]
--- OUTSIDE RECORDS SUMMARY | 2025-07-23 16:23 | XMS_ITS | Encounter Summary ---
Author Organization [facility] Address [address] [place] [address] Phone Care Team Providers Care Parts Control Clerk Name Role Phone Hadley Hopkins MD Primary Care Provider [phone] Hadley Hopkins MD Unavailable [phone] Julio Cesar Handley MD Primary Care Prov ider Julio Cesar Handley MD Unavailable + Encounter Details Date Type Department Care Team (Late st Contact Info) Description 07/13/2022 Procedure Pass [place] Admitting Dept - [facility] Department [address] [place] [address] Social History Tobacco Use Types Packs/Day Years Used Date Smoking Tobacco: Some Days Cigarettes Smokeless Tobacco: Never Comments:smokes on and [...] st Contact Info) Description 02/02/2025 Procedure Pass [facility] [address] [place] [address] 08/21/2025 2:00 PM EDT Appointment [facility], [facility] [address] [place] [address] Julio Cesar Handley MD [address] [place] [address] [email or web address] documented as of this encounter Visit Diagnoses Not on filedocumented in this encounter Care Teams Parts Control Clerk Relationship Specialty Start Date End Date Hadley Hopkins MD PCP - General Internal Medicine 01/22/19 10/08/22 Julio Cesar Handley MD [address] [place] [phone] [email or web address] PCP - General Family Medicine 10/09/22 Hadley Hopkins MD [address] [place] [address] Insurance Assigned Provider 08/07/20 12/02/22 Julio Cesar Handley MD [address] [place] [address] [email or web address] Insurance Assigned Provider 12/02/22 07/07/23 documented as of this encounter Additional Source Comments The information contained in this document represents components of the legal health record. It is not the complete legal health record.[facility]
--- OUTSIDE RECORDS SUMMARY | 2025-07-23 16:23 | XMS_ITS | Encounter Summary ---
Author Organization [facility] Address [address] [place] [address] Phone Care Team Providers Care Behavioral Pediatrician Name Role Phone Hadley Hopkins MD Primary Care Provider +[phone] Hadley Hopkins MD Unavailable [phone] Julio Cesar Handley MD Primary Care Prov ider Julio Cesar Handley MD Unavailable + Encounter Details Date Type Department Care Team (Late st Contact Info) Description 10/03/2022 Procedure Pass [address] [address] Social History Tobacco Use Types Packs/Day Years [...] st Contact Info) Description 02/02/2025 Procedure Pass [address] [address] 08/21/2025 2:00 PM EDT Appointment [facility], [facility] [address] [place] [address] Julio Cesar Handley MD [address] [place] [address] [email or web address] documented as of this encounter Visit Diagnoses Not on filedocumented in this encounter Care Teams Behavioral Pediatrician Relationship Specialty Start Date End Date Hadley Hopkins MD PCP - General Internal Medicine 01/22/19 10/08/22 Julio Cesar Handley MD [address] [place] [phone] [email or web address] PCP - General Family Medicine 10/09/22 Hadley Hopkins MD [address] [place] [address] Insurance Assigned Provider 08/07/20 12/02/22 Julio Cesar Handley MD [address] [place] [address] [email or web address] Insurance Assigned Provider 12/02/22 07/07/23 documented as of this encounter Additional Source Comments The information contained in this document represents components of the legal health record. It is not the complete legal health record.[facility]
--- OUTSIDE RECORDS SUMMARY | 2025-07-23 16:24 | XMS_ITS | Encounter Summary ---
Author Organization [facility] Address [address] [place] [address] Phone Care Team Providers Care Licensing Registration Examiner Name Role Phone Lorna Pizarro MD Unavailable [phone] Hadley Hopkins MD Primary Care Provider [phone] Hadley Hopkins MD Unavailable Julio Cesar Handley MD Primary Care Prov ider Julio Cesar Handley MD Unavailable + Encounter Details Date Type Department Care Team (Late st Contact Info) Description 03/05/[address] [facility] Endoscopy Admitting Dept Virtual Department [address] [place] [address] Social History Tobacco Use Types Packs/Day Years Used Date Smoking Tobacco: Some Days Cigarettes Smokeless Tobacco: Never Comments:smokes on and off/n ot since august Alcohol Use Standard Drinks/Week Comments Yes 14 (1 standard drink = 0.6 oz pu re alcohol) 2 per day Comments No Sex and Gender Information Value Date Recorded Sex Assigned at Female 05/24/2020 11:24 PM EDT Legal Sex Female 7:32 PM EST Gender Identity Female 05/24/2020 11:24 PM EDT Sexual Orientation Don't know 01/01/2025 8: 27 PM EST documented as of this encounter Plan of Treatment Upcoming Encounters Date Type Department Care Team (Late st Contact Info) Description 02/02/2025 Procedure Pass [facility] [address] [place] [address] 08/21/2025 2:00 PM EDT Appointment [facility], [facility] [address] [place] [address] Julio Cesar Handley MD [address] [place] [address] [email or web address] documented as of this encounter Visit Diagnoses Not on filedocumented in this encounter Additional Health Concerns Infection Onset Date Last Indicated Resolved Time CoV-Risk 03/03/2020 03/03/2020 03/17/2020 1:31 AM EDT documented as of this encounter Care Teams Licensing Registration Examiner Relationship Specialty Start Date End Date Hadley Hopkins MD [address] [place] [address] PCP - General Internal Medicine 01/22/19 10/08/22 Julio Cesar Handley MD [address] [place] [phone] [email or web address] PCP - General Family Medicine 10/09/22 Lorna Pizarro MD [address] [place] [address] [email or web address] LMR Provider 11/28/1812/06 Hadley Hopkins MD [address] [place] [address] Insurance Assigned Provider 08/07/20 12/02/22 Julio Cesar Handley MD [address] [place] [address] [email or web address] Insurance Assigned Provider 12/02/22 07/07/23 documented as of this encounter Additional Source Comments The information contained in this document represents components of the legal health record. It is not the complete legal health record.[facility]
--- OUTSIDE RECORDS SUMMARY | 2025-07-23 16:24 | XMS_ITS | Encounter Summary ---
Author Organization [facility] Address [address] [place] [address] Phone Care Team Providers Care Coupon Clerk Name Role Phone Hadley Hopkins MD Primary Care Provider [phone] Hadley Hopkins MD Unavailable [phone] Julio Cesar Handley MD Primary Care Prov ider Julio Cesar Handley MD Unavailable + Encounter Details Date Type Department Care Team (Late st Contact Info) Description 10/31/2021 Transcribe Orders Virtual Department [address] [place] [address] Julio Cesar Handley MD [address] [place] [phone] [email or web address] Abnormal LFTs (Primary Dx) Social History Tobacco Use Types Packs/Day Years Used Date Smoking Tobacco: Some Days Cigarettes Smokeless Tobacco: Never Comments:smokes on and off/n ot since august Alcohol Use Standard Drinks/Week Comments Yes 0 (1 standard drink = 0.6 oz pur e alcohol) social drinker Comments No Sex and Gender Information Value Date Recorded Sex Assigned at Female 05/24/2020 11:24 PM EDT Legal Sex Female 7:32 PM EST Gender Identity Female 05/24/2020 11:24 PM EDT Sexual Orientation Don't know 01/01/2025 8: 27 PM EST documented as of this encounter Plan of Treatment Upcoming Encounters Date Type Department Care Team (Late st Contact Info) Description 02/02/2025 Procedure Pass [facility], [address] [address] 08/21/2025 2:00 PM EDT Appointment [address] [address] Julio Cesar Handley MD [address] [place] [address] [email or web address] documented as of this encounter Visit Diagnoses Diagnosis Abnormal LFTs- Primary documented in this encounter Care Teams Coupon Clerk Relationship Specialty Start Date End Date Hadley Hopkins MD PCP - General Internal Medicine 01/22/19 10/08/22 Julio Cesar Handley MD [address] [place] [phone] [email or web address] PCP - General Family Medicine 10/09/22 Hadley Hopkins MD [address] [place] [address] Insurance Assigned Provider 08/07/20 12/02/22 Julio Cesar Handley MD [address] [place] [address] [email or web address] Insurance Assigned Provider 12/02/22 07/07/23 documented as of this encounter Additional Source Comments The information contained in this document represents components of the legal health record. It is not the complete legal health record.[facility]
--- OUTSIDE RECORDS SUMMARY | 2025-07-23 16:24 | XMS_ITS | Encounter Summary ---
Author Organization [facility] Address [address] [place] [address] Phone Care Team Providers Care Sisal Operator Name Role Phone Hadley Hopkins MD Primary Care Provider [phone] Hadley Hopkins MD Unavailable [phone] Julio Cesar Handley MD Primary Care Prov ider Julio Cesar Handley MD Unavailable + Encounter Details Date Type Department Care Team (Late st Contact Info) Description 09/26/2021 Ancillary Orders [address] [address] Travis Moser MD [address] [place] [address] [email or web address] RUQ pain Social History Tobacco Use Types Packs/Day Years [...] Contact Info) Description 02/02/2025 Procedure Pass [address] [address] 08/21/2025 2:00 PM EDT Appointment [address] [address] Julio Cesar Handley MD [address] [place] [address] [email or web address] documented as of this encounter Results * US ABDOMEN LIMITED RIGHT UPPER QUADRANT (09/26/2021 12:13 PM EST) Anatomical Region Laterality Modality Abdomen Ultrasound 09/26/2021 12:2 0 PM EST Impressions 09/26/2021 12:36 PM EST 1. Non-simple appearing cyst in the right hepatic lobe, similar compared to prior imaging. 2. Gallbladder wall thickening with evidence of cholelithiasis concerning for presence of acute cholecystitis. Findings were communicated to Dr. Moser, the caring emergency department physician on 09/26/2021 at 12:35 PM. Narrative 09/26/2021 12:36 PM EST US ABDOMEN LIMITED RIGHT UPPER QUADRANT TECHNIQUE: US Abdominal limited right upper quadrant. COMPARISON: 05/29/2016 CLINICAL HISTORY: Pain FINDINGS: Liver: There is a not entirely simple appearing cystic area within the right hepatic lobe, similar in appearance compared to prior imaging, having 2.8 SAG x2.0 AP x2.7 TR centimeters in size. Internal echoes may reflect debris or septations. Main Portal Vein: Patent with normal direction of flow. Gallbladder: There are echogenic foci consistent with gallstones. New compared to prior imaging, there is thickening of the gallbladder wall which measures 6 mm in thickness. There is suggestion of more stratification. Findings are concerning for presence of acute cholecystitis. Clinical correlation is advised. Biliary: Normal. No intrahepatic or extrahepatic biliary ductal dilatation. The common bile duct measures 6 mm. Procedure Note Bryson Schwab MD - 09/26/2021 US ABDOMEN LIMITED RIGHT UPPER QUADRANT TECHNIQUE: US Abdominal limited right upper quadrant. COMPARISON: 05/29/2016 CLINICAL HISTORY: Pain FINDINGS: Liver: There is a not entirely simple appearing cystic area within theright hepatic lobe, similar in appearance compared to prior imaging,having 2.8 SAG x2.0 AP x2.7 TR centimeters in size. Internal echoes mayreflect debris or septations. Main Portal Vein: Patent with normal direction of flow. Gallbladder: There are echogenic foci consistent with gallstones. Newcompared to prior imaging, there is thickening of the gallbladder wallwhich measures 6 mm in thickness. There is suggestion of morestratification. Findings are concerning for presence of acutecholecystitis. Clinical correlation is advised. Biliary: Normal. No intrahepatic or extrahepatic biliary ductaldilatation. The common bile duct measures 6 mm. IMPRESSION: 1. Non-simple appearing cyst in the right hepatic lobe, similar comparedto prior imaging. 2. Gallbladder wall thickening with evidence of cholelithiasis concerningfor presence of acute cholecystitis. Findings were communicated to Dr. Moser, the caring emergency departmentphysician on 09/26/2021 at 12:35 PM. [facility] Leonel Moser MD IMG US ABDOMEN Final Result documented in this encounter Visit Diagnoses Diagnosis RUQ pain Abdominal pain, right upper quadrant RUQ pain Abdominal pain, right upper quadrant documented in this encounter Care Teams Sisal Operator Relationship Specialty Start Date End Date Hadley Hopkins MD PCP - General Internal Medicine 01/22/19 10/08/22 Julio Cesar Handley MD [address] [place] [phone] [email or web address] PCP - General Family Medicine 10/09/22 Hadley Hopkins MD [address] [place] [address] Insurance Assigned Provider 08/07/20 12/02/22 Julio Cesar Handley MD [address] [place] [address] [email or web address] Insurance Assigned Provider 12/02/22 07/07/23 documented as of this encounter Additional Source Comments The information contained in this document represents components of the legal health record. It is not the complete legal health record.[facility]
--- OUTSIDE RECORDS SUMMARY | 2025-07-23 16:24 | XMS_ITS | Encounter Summary ---
Author Organization [facility] Address [address] [place] [address] Phone Care Team Providers Care Clinical Quality Rn Name Role Phone Hadley Hopkins MD Primary Care Provider [phone] Hadley Hopkins MD Unavailable [phone] Julio Cesar Handley MD Primary Care Prov ider Julio Cesar Handley MD Unavailable + Encounter Details Date Type Department Care Team (Late st Contact Info) Description 10/31/2021 Transcribe Orders Virtual Department 30 [place], [place] [phone] Kat Perry NP [address] [place] [address] [place] [phone] [email or web address] Other specified diseases of liver (Primary Dx) Social History Tobacco Use Types [...] st Contact Info) Description 02/02/2025 Procedure Pass [address] [address] 08/21/2025 2:00 PM EDT Appointment [address] [address] Julio Cesar Handley MD [address] [place] [address] [email or web address] documented as of this encounter Results * US ABDOMEN LIMITED RIGHT UPPER QUADRANT (11/04/2021 10:23 AM EST) Anatomical Region Laterality Modality Abdomen Ultrasound 11/04/2021 10:3 1 AM EST Impressions 11/04/2021 10:35 AM EST 1.Stable septated right hepatic lobe cyst. New 1.2 cm simple right hepatic lobe cyst. 2.Resolved gallbladder wall thickening. Stable cholelithiasis. Narrative 11/04/2021 10:35 AM EST COMPARISON: 09/26/2021. LIMITED ABDOMEN ULTRASOUND FINDINGS: Liver: No significant change in the septated right hepatic lobe cyst measuring 2.6 x 2 x 3.1 cm compared to 2.8 x 2 x 2.7 cm. New 1.2 cm simple right hepatic cyst. Gallbladder: Resolved gallbladder wall thickening. Stable cholelithiasis-largest 1.2 cm.. Common bile duct: Normal-2 mm. Pancreas: Imaged pancreas is normal. The pancreatic tail is obscured by bowel gas. Right Kidney: No hydronephrosis. Proximal abdominal aorta/IVC/Main Portal Vein: Unremarkable. Procedure Note Maurice Vizcarra MD - 11/04/2021 COMPARISON: 09/26/2021. LIMITED ABDOMEN ULTRASOUND FINDINGS: Liver: No significant change in the septated right hepatic lobe cystmeasuring 2.6 x 2 x 3.1 cm compared to 2.8 x 2 x 2.7 cm. New 1.2 cm simpleright hepatic cyst. Gallbladder: Resolved gallbladder wall thickening. Stablecholelithiasis-largest 1.2 cm.. Common bile duct: Normal-2 mm. Pancreas: Imaged pancreas is normal. The pancreatic tail is obscured bybowel gas. Right Kidney: No hydronephrosis. Proximal abdominal aorta/IVC/Main Portal Vein: Unremarkable. IMPRESSION: 1.Stable septated right hepatic lobe cyst. New 1.2 cm simple right hepaticlobe cyst. 2.Resolved gallbladder wall thickening. Stable cholelithiasis. us Kat Perry [employer] SET UP OPERATOR VERTICAL IMG US ABDOMEN Rebekah l Result documented in this encounter Visit Diagnoses Diagnosis Other specified diseases of liver- Primary Other specified diseases of liver documented in this encounter Care Teams Clinical Quality Rn Relationship Specialty Start Date End Date Hadley Hopkins MD PCP - General Internal Medicine 01/22/19 10/08/22 Julio Cesar Handley MD [address] [place] [phone] [email or web address] PCP - General Family Medicine 10/09/22 Hadley Hopkins MD [address] [place] [address] Insurance Assigned Provider 08/07/20 12/02/22 Julio Cesar Handley MD [address] [place] [address] [email or web address] Insurance Assigned Provider 12/02/22 07/07/23 documented as of this encounter Additional Source Comments The information contained in this document represents components of the legal health record. It is not the complete legal health record.[facility]
--- OUTSIDE RECORDS SUMMARY | 2025-07-23 16:24 | XMS_ITS | Encounter Summary ---
Author Organization [facility] Address [address] [place] [address] Phone Care Team Providers Care Stove Bottom Worker Name Role Phone Hdaley Hopkins MD Primary Care Provider [phone] Hadley Hopkins MD Unavailable [phone] Julio Cesar Handley MD Primary Care Prov ider Julio Cesar Handley MD Unavailable + Encounter Details Date Type Department Care Team (Late st Contact Info) Description 09/20/2021 Transcribe Orders Virtual Department [address] [place] [address] Julio Cesar Handley MD [address] [place] [address] [phone] [email or web address] Breast screening (Primary Dx) Social History Tobacco [...] st Contact Info) Description 02/02/2025 Procedure Pass [address] [address] 08/21/2025 2:00 PM EDT Appointment [address] [address] Julio Cesar Handley MD [address] [place] [address] [email or web address] documented as of this encounter Results * BI MAMMOGRAM SCREENING WITH TOMOSYNTHESIS WITH CAD (BILATERAL) (10/07/2021 1:24 PM EST) Anatomical Region Laterality Modality Breast Left, Breast Right, Breast Bilateral Bila teral Mammography 10/07/2021 2:32 PM EST Impressions 10/07/2021 2:38 PM EST BILATERAL BREASTS: Negative, no evidence of malignancy. Normal interval follow- up is recommended in 12 months. Bi-RADS: BI-RADS CATEGORY: 1 - Negative. DENSITY: There are scattered fibroglandular densities. Narrative 10/07/2021 2:38 PM EST STUDY: Bilateral screening mammography with tomosynthesis and CAD TECHNIQUE: Bilateral full-field digital screening mammography is obtained and read in conjunction with computer-aided detection. Tomosynthesis as well as 2-D C view imaging were obtained. COMPARISON: No prior images/reports available for comparison. This will be considered a new baseline study. BREAST COMPOSITION: There are scattered areas of fibroglandular density BILATERAL BREASTS: No significant masses, suspicious calcifications or other abnormalities are seen. Procedure Note Teresa Browning MD - 10/07/2021 STUDY: Bilateral screening mammography with tomosynthesis and CAD TECHNIQUE: Bilateral full-field digital screening mammography is obtainedand read in conjunction with computer-aided detection. Tomosynthesis aswell as 2-D C view imaging were obtained. COMPARISON: No prior images/reports available for comparison. This will beconsidered a new baseline study. BREAST COMPOSITION: There are scattered areas of fibroglandulardensity BILATERAL BREASTS: No significant masses, suspicious calcifications orother abnormalities are seen. IMPRESSION: BILATERAL BREASTS: Negative, no evidence of malignancy. Normal intervalfollow-up is recommended in 12 months. Bi-RADS: BI-RADS CATEGORY: 1 - Negative. DENSITY: There are scattered fibroglandular densities. Julio Cesar Vega MD IMG MG EXAMS Fi nal Result documented in this encounter Visit Diagnoses Diagnosis Breast screening- Primary Breast screening, unspecified Breast screening Breast screening, unspecified documented in this encounter Care Teams Stove Bottom Worker Relationship Specialty Start Date End Date Hadley Hopkins MD PCP - General Internal Medicine 01/22/19 10/08/22 Julio Cesar Handley MD [address] [place] [phone] [email or web address] PCP - General Family Medicine 10/09/22 Hadley Hopkins MD [address] [place] [address] Insurance Assigned Provider 08/07/20 12/02/22 Julio Cesar Handley MD [address] [place] [address] [email or web address] Insurance Assigned Provider 12/02/22 07/07/23 documented as of this encounter Additional Source Comments The information contained in this document represents components of the legal health record. It is not the complete legal health record.[facility]
--- OUTSIDE RECORDS SUMMARY | 2025-07-23 16:24 | XMS_ITS | Encounter Summary ---
Author Organization [facility] Address [address] [place] [address] Phone Care Team Providers Care Dental Ceramist Name Role Phone Hadley Hopkins MD Primary Care Provider [phone] Hadley Hopkins MD Unavailable [phone] Julio Cesar Handley MD Primary Care Prov ider Julio Cesar Handley MD Unavailable + Encounter Details Date Type Department Care Team (Late st Contact Info) Description 09/20/2021 Procedure Pass [address] [address] Social History Tobacco Use Types Packs/Day Years [...] Contact Info) Description 02/02/2025 Procedure Pass [address] [address] 08/21/2025 2:00 PM EDT Appointment [address] [address] Julio Cesar Handley MD [address] [place] [address] [email or web address] documented as of this encounter Visit Diagnoses Not on filedocumented in this encounter Care Teams Dental Ceramist Relationship Specialty Start Date End Date Hadley Hopkins MD PCP - General Internal Medicine 01/22/19 10/08/22 Julio Cesar Handley MD [address] [place] [phone] [email or web address] PCP - General Family Medicine 10/09/22 Hadley Hopkins MD [address] [place] [address] Insurance Assigned Provider 08/07/20 12/02/22 Julio Cesar Handley MD [address] [place] [address] [email or web address] Insurance Assigned Provider 12/02/22 07/07/23 documented as of this encounter Additional Source Comments The information contained in this document represents components of the legal health record. It is not the complete legal health record.[facility]
== END 2025-07-23 12:06 | disposition home or self-care (01) ==
LOC: HO.HUSH 11:34
PROVIDERS: PCP Family Medicine; Visit Provider Nurse Practitioner Family
DX: Z13.9 Encounter for screening, unspecified (principal)

== ENCOUNTER → 2025-07-23 11:34 | Outpatient (BNVA) | payer OTHER, SELFPAY | PROVIDERS: PCP Family Medicine; Visit Provider Nurse Practitioner Family | DX: N28.1 Cyst of kidney, acquired (principal); R35.1 Nocturia; R35.0 Frequency of micturition; R39.9 Unspecified symptoms and signs involving the genitourinary system; N30.10 Interstitial cystitis (chronic) without hematuria | CPT/HCPCS: 81003; 99212 ==